=== PATIENT | male | born 1940 ===

== ENCOUNTER 2019-03-17 14:14 | Inpatient (IN) | payer MEDICARE ==
[2019-03-17] MEDS ORDERED: Ondansetron PF 4 MG/2 ML Vial IVP PRN (17:12)
[2019-03-17] MEDS ORDERED: Acetaminophen 650 MG Suppository PR PRN (17:12)
[2019-03-17] MEDS ORDERED: Dextrose 5% in Water 1,000 ML IV PRN (17:23)
[2019-03-17] MEDS ORDERED: Dextrose 50% Abboject 50 ML SYRINGE SLOW IVP PRN (17:23)
[2019-03-17] MEDS ORDERED: HumaLOG 300 UNITS/3 ML VIAL SC PRN ×2 (17:23)
[2019-03-17] MEDS ORDERED: Nystatin Powder 15 GM BOT TOP PRN (17:26)
[2019-03-17 17:45] LABS: #Eosinphils 0.1 thou/uL (0.0-0.7); #Lymphocytes 0.7 thou/uL (1.20-3.40); #Monocytes 0.3 thou/uL (0.11-0.59); #Neutrophils 4.9 thou/uL (1.40-6.50); %Basophils 0.5 % (0.0-1.0); %Monocytes 5.4 % (0.0-10.0); Hemoglobin 10.3 g/dL (14.0-18.0); Mean Corpuscular HGB CONC 33.3 g/dL (32.0-36.0); Mean Corpuscular Hemoglobin 31.5 pg (27.0-31.0); Mean Corpuscular Volume 94.7 fL (78.0-98.0); Mean Platelet Volume 8.9 fL (7.4-10.4); Platelet Count 213 thou/uL (130-400); RBC Distribution Width 12.3 % (11.5-14.5); Red Blood Cell (RBC) Count 3.27 mill/uL (4.70-6.10)
[2019-03-17 17:51] LABS: INR-International Normal Ratio 1.1; PTT 39.9 SEC (22.9-36.1); Prothrombin Time 14.4 SEC (12.0-14.7)
[2019-03-17 18:05] LABS: Lactic Acid 0.9 mmol/L (0.5-2.2)
[2019-03-17 18:09] LABS: ALT (SGPT) 7 U/L (8-55); AST (SGOT) 20 U/L (5-34); Albumin 3.3 g/dL (3.4-4.8); Alkaline Phosphatase 113 U/L (40-110); Anion Gap 18 mmol/L (10-20); BUN (Urea Nitrogen) 51 mg/dL (8.4-25.7); Bilirubin, Total 0.4 mg/dL (0.2-1.2); Calc. Creatinine Clearance 0 mL/min (70-130); Calcium 8.6 mg/dL (7.8-10.44); Carbon Dioxide 18 mmol/L (23-31); Chloride 102 mmol/L (98-107); Estimated GFR-MDRD 31; Globulin 3.4 g/dL (2.4-3.5); Glucose 117 mg/dL (83-110); Magnesium 2.2 mg/dL (1.6-2.6); Potassium 6.2 mmol/L (3.5-5.1); Protein, Total 6.7 g/dL (5.8-8.1); Sodium 132 mmol/L (136-145)
--- NOTE | 2019-03-17 18:25 | ULT ---
EXAM: Bilateral lower extremity venous ultrasound HISTORY: Bilateral lower extremity pain and edema COMPARISON: None TECHNIQUE: Multiplanar grayscale and color Doppler images were obtained in a bilateral lower extremit y venous ultrasound. Spectral analysis of the Doppler waveforms were performed. FINDINGS: There is limited visualization of the right common femoral vein, left posterior tibial vein , and right greater saphenous vein. The right profunda femoral vein, superficial femoral vein, and popliteal vein are normal in appearanc e without visible thrombus. The left common femoral vein, profunda femoral vein, superficial femoral vein, and popliteal vein are normal in appearance without visible thrombus. These vessels dem onstrate normal compression, flow, and augmentation. The visualized posterior tibial veins and greater saphenous veins are patent without evidence of thro mbus. IMPRESSION: No evidence of DVT.
--- NOTE | 2019-03-17 18:56 | HP ---
PRIMARY CARE PHYSICIAN: None. CHIEF COMPLAINT: Weakness and lower extremity swelling. HISTORY OF PRESENT ILLNESS: Mr. Burdick is a pleasant 78-year-old gentleman with a known history of bladder cancer, who more recently was diagnosed with large B- cell lymphoma after developing a retroperitoneal lymph node that was biopsied. The patient was recently sent to rehab by Dr. Lawson due to progressive generalized weakness and falls with plans to have him undergo repeat imaging once discharged from rehab and then further discussion regarding treatment. According to the patient and his daughter, he has had progressively worsening lower extremity swelling since he was sent home from rehab 2 weeks ago. The patient has not had any falls, but has continued to get progressively weak again. This morning, he was scheduled to follow up with Dr. Lawson and states he was too weak to stand. He noted significant swelling that extended into the groin with difficulty urinating. He presented to the emergency department in [place] and has been transferred here for further workup and management. He has had a Oliver placed. The patient was last seen by Dr. Lawson on 02/07/2019. Clinic note from that day indicates the lymph node was originally seen on routine imaging for surveillance given history of bladder cancer that was done in June 2018. The lymph node at that time measured 2.5 cm. He reportedly had already presented with general decline in January. He has had CT imaging done prior to January after having a fall that demonstrated the retroperitoneal node had enlarged further and there was apparently encasement of the abdominal aorta and bilateral ureters resulting in mild bilateral hydronephrosis. For that reason, the patient has undergone bilateral ureteral stent placement. The patient was then referred for rehab and consultation placed to Oncology. Per Dr. Lawson's assessment in January, it was felt that he was unlikely to tolerate treatment given his poor performance status and comorbidities. Further imaging was requested with a PET scan. He had also been referred to Cardiology and recommended an echo; however, the patient states that was not completed yet. At this present time, he denies having any pain, but does report having some discomfort in the lower extremities when his legs are palpated or moved. He denies having any chest pain, palpitations, or shortness of breath. Denies having any headaches or dizziness. No nausea or vomiting. Denies any abdominal pain or cramping. He does report some mild discomfort in the groin. States he has been using cornstarch for rash on his abdomen. Denies any associated pruritus. Has not had any recent fevers or chills. He has lost 100 pounds in the last year. States previously the swelling was worse in the right leg, but more recently has been worse in the left leg. CT imaging done on 01/28/2019, showed interval development of confluent retroperitoneal soft tissue density with encasement of abdominal aorta and bilateral ureters resulting in mild bilateral hydronephrosis. PAST MEDICAL HISTORY: 1. Diabetes mellitus. 2. Hypertension. 3. History of CA in 1989. 4. Hyperlipidemia. 5. Arthritis. 6. COPD. 7. Bladder cancer in 2003, in remission. 8. CKD. 9. Performance status of 3 to 4. 10. DLBCL of the retroperitoneal lymph nodes. PAST SURGICAL HISTORY: 1. Bladder surgery for bladder cancer. 2. Bilateral ureteral stent placements. 3. Back surgery. 4. Ankle surgery. 5. Shoulder surgery. SOCIAL HISTORY: The patient has been discharged from rehab and is now living at home. He lives with his . He is a former smoker and previously smoked 3 to 4 packs per day for 40 years. Denies any alcohol use or illicit drug use. ALLERGIES: BACTRIM. CURRENT MEDICATIONS: To be verified. Per ED, unknown. The patient does not have his medication list with him. PHYSICAL EXAMINATION: GENERAL: The patient appears well developed and in no acute distress. VITAL SIGNS: Temperature 97.8, pulse is 83, respirations 14, blood pressure 125 /69, O2 saturation 95% on room air. HEENT: Normocephalic and atraumatic. Pupils are equal, round, reactive to light. Sclerae without icterus. Oropharynx is clear. NECK: Supple without lymphadenopathy. LUNGS: Clear to auscultation bilaterally without wheezes, rales, or rhonchi. CARDIAC: Regular rate and rhythm. ABDOMEN: Soft, nontender. Notable for erythema along the lower abdomen with areas of skin desquamation between the skin folds. Dry powdery substance present which the patient states is cornstarch. No bleeding or draining. Erythema extending down to involve the suprapubic region and extending down to the penis with notable penile edema as well as groin edema and erythema. EXTREMITIES: Bilateral lower extremity +3 edema, extending from the feet to involve the entire bilateral legs. Edema seems to be slightly worse in the left side as compared to the right. The patient with right calf tenderness. NEUROLOGIC: Alert and oriented x3. No neurologic deficits. IMPRESSION AND PLAN: Mr. 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 The patient due for repeat imaging this week with a PET scan and has not yet started treatment given poor performance status. He was in rehab and appears to have continued to decline since discharge. The patient becoming increasingly weak with worsening lower extremity swelling. He is being admitted for management of the followin. Bilateral lower extremity edema and weakness. Bilateral Doppler ultrasound ordered to rule out any underlying deep vein thrombosis. Likely associated with malignant lymphadenopathy. Consultation has been placed to Susanna Wilson who Dr. Lerma discussed the case with. We will obtain a BNP and echo to rule out any underlying heart failure. We will also obtain baseline labs. Further imaging as per Oncology team. Keep the patient n.p.o. at midnight pending any possible procedures as per discussion with Dr. Lerma. We will place a consultation with Palliative Care to discuss goals of care and advance directives as well as for complex decision making. 2. Abdominal skin infection. The patient is afebrile. Again, we will obtain baseline laboratory studies including lactic acid. We will start antibiotics with ceftriaxone and p.o. doxycycline as per discussion with Dr. Lerma. We will also order nystatin powder. 3. Diabetes mellitus. Monitor blood glucose and initiate insulin sliding scale. 4. Hypertension. Monitor blood pressure. Currently, he is normotensive. Verify home medications. 5. Urinary retention. The patient with Oliver catheter in place. Urinalysis and urine culture requested. 6. Acute kidney injury/chronic kidney disease. ED physician has placed a consultation to Nephrology. Most recent labs done on 02/07/2019, showed a BUN of 44, creatinine of 2.18, GFR of 29. We will repeat renal function. Continue to monitor. Gentle hydration given degree of edema present. 7. GI prophylaxis. Famotidine 20 mg IV b.i.d. 8. DVT prophylaxis. Awaiting venous Doppler. 9. Code status full. Surrogate decision maker is Jaelyn Horta, who is his daughter. The patient's case was discussed with Dr. Lerma, who agrees with the plan of care as described above. ADDENDUM: Labs notable for hyperkalemia, K+ 6.2 Patient in ED, ED physician will obtain EKG. Apparently discussion had regarding dialysis, therefore ED resident will discuss with Dr. Cardenas. Patient will be going to Tele. Job ID: [id number] MTDD
[2019-03-17] MEDS ORDERED: Calcium Gluc 4.6 MEQ/10 ML (100 MG/ML) ONE (20:08)
[2019-03-17] MEDS ORDERED: Dextrose 50% Abboject 50 ML SYRINGE ONE (20:08)
[2019-03-17] MEDS ORDERED: Sodium Bicarb 50 MEQ/50 ML VIAL ONE (20:08)
[2019-03-17] MEDS ORDERED: Insulin Regular 300 UNITS/3 ML VIAL ONE (20:08)
[2019-03-17 20:29] LABS: ALT (SGPT) Less than 7 U/L (8-55); AST (SGOT) 13 U/L (5-34); Albumin 3.3 g/dL (3.4-4.8); Alkaline Phosphatase 113 U/L (40-110); Anion Gap 17 mmol/L (10-20); BUN (Urea Nitrogen) 51 mg/dL (8.4-25.7); Bilirubin, Total 0.4 mg/dL (0.2-1.2); Calc. Creatinine Clearance 0 mL/min (70-130); Calcium 8.7 mg/dL (7.8-10.44); Carbon Dioxide 21 mmol/L (23-31); Chloride 102 mmol/L (98-107); Estimated GFR-MDRD 31; Globulin 3.1 g/dL (2.4-3.5); Glucose 108 mg/dL (83-110); Potassium 5.8 mmol/L (3.5-5.1); Protein, Total 6.4 g/dL (5.8-8.1); Sodium 134 mmol/L (136-145)
[2019-03-17] MEDS ORDERED: Famotidine/PF 20 mg/2ml Vial SLOW IVP SCH (21:00)
[2019-03-17] MEDS ORDERED: Sodium Bicarbonate 50 MEQ in Sodium Chloride 0.45% 1,000 ML IV SCH (22:30)
[2019-03-17] MEDS ORDERED: Sodium Bicarbonate 150 MEQ in Dextrose 5% in Water 1,000 ML IV SCH (23:45)
[2019-03-18] MEDS: Doxycycline 100 MG CAP PO SCH ×3 (00:07→21:02)
[2019-03-18] MEDS: Ondansetron ODT 4 MG TAB PO PRN (00:07)
[2019-03-18] MEDS: Acetaminophen 325 MG TAB PO PRN (00:08)
[2019-03-18] MEDS: cefTRIAXone\\ROCEPHIN 1 GM in Sodium Chloride 0.9% 100 ML IVPB SCH ×2 (00:08→21:01)
--- NOTE | 2019-03-18 00:39 | CON ---
DATE OF CONSULTATION: REQUESTING PHYSICIAN: AMADO Godoy REASON FOR CONSULTATION: Acute kidney injury. IMPRESSION: 1. Acute kidney injury. This is possibly in the context of obstructive uropathy from extrinsic compression of the ureters, however, cannot completely rule out renal vein thrombosis. 2. Bilateral lower extremity edema. This is likely due to extrinsic compression of the inferior vena cava versus intrinsic compression of the inferior vena cava from inferior vena cava thrombosis. 3. History of B-cell lymphoma. 4. Hyperkalemia related to problem #1. 5. Metabolic acidosis. PLAN: 1. Discontinue normal saline to avoid precipitating re-expansion acidosis which will worsen the hyperkalemia. In place of this, we will start this patient on a bicarb based infusion, only 1 L. 2. Medical management of the hyperkalemia. 3. Renal ultrasound to evaluate the integrity of the kidneys. 4. We will defer to the primary team in terms of working this patient up for possible IVC thrombosis versus extrinsic compression of the IVC. 5. Hopefully, this patient will respond to the medical management of the hyperkalemia to avoid any emergent indication for renal replacement therapy. 6. Renally dose all medications and avoid potentially nephrotoxic agents. 7. If whenever this patient is to undergo chemotherapy, very close attention to be paid to potential tumor lysis syndrome. HISTORY OF PRESENT ILLNESS: History is that of a 78-year-old gentleman with a previous history of bladder carcinoma, recently diagnosed with B-cell lymphoma, who presented here as a transfer from the [facility] where the patient presented for weakness and worsening bilateral lower extremity edema. The patient on clinical evaluation was noted to be hyperkalemic and metabolically acidotic. As a result of these findings, decision has been taken to involve Renal in the management of this case. PAST MEDICAL HISTORY: Significant for diabetes mellitus, hypertension, coronary artery disease, arthritis, COPD, bladder cancer, CKD, stage 3. SOCIAL HISTORY: Remote tobacco use. No alcohol. No illicit drug use. ALLERGIES: TO BACTRIM. CURRENT MEDICATIONS: As documented on [facility]. REVIEW OF SYSTEMS: As documented in the body of the history. All other systems were reviewed and found not to be significantly related to present illness. PHYSICAL EXAMINATION: GENERAL: The patient was found to be ill looking, noted with the following vital signs. VITAL SIGNS: Afebrile, temperature 97.8, pulse 83, respiratory rate of 14, blood pressure 125/69, O2 saturation 95% on room air. HEENT: Unremarkable. CARDIOVASCULAR: First and second heart sounds were heard. RESPIRATORY: Clear to auscultation. DIGESTIVE: Revealed a benign abdomen with positive bowel sounds. EXTREMITIES: Showed 4+ bilateral lower extremity edema up to the scrotal area. SKIN: No new gross rash. LYMPHATICS: No peripheral lymphadenopathy. SUMMARY: A 78-year-old gentleman with recent diagnosis of B-cell lymphoma who presented here with worsening bilateral lower extremity edema, noted to be hyperkalemic and acute kidney injury. Job ID: [id number]
[2019-03-18 00:44] LABS: Bacteria/HPF 1+ HPF (None Seen); Bilirubin Negative (Negative); Blood, Urine 1+ (Negative); Clarity Turbid (Clear); Glucose, Urine (Dipstick) Normal (Negative); Leukocyte 500 Leu/uL (Negative); Nitrite Negative (Negative); Protein, Urine (Dipstick) 10 mg/dL (Neg-Trace); Squamous Epithelial 0-3 HPF (0-3); Urobilinogen Normal mg/dL (Less than 2); WBC/HPF 21-50 HPF (0-3)
[2019-03-18 00:45] LABS: Urine Culture Reflex Yes Yes
[2019-03-18 05:18] LABS: #Eosinphils 0.2 thou/uL (0.0-0.7); #Lymphocytes 0.9 thou/uL (1.20-3.40); #Monocytes 0.4 thou/uL (0.11-0.59); %Basophils 0.6 % (0.0-1.0); %Lymphocytes 16.8 % (21.0-51.0); %Monocytes 7.5 % (0.0-10.0); %Neutrophils 71.1 % (42.0-75.0); Hemoglobin 9.2 g/dL (14.0-18.0); Mean Corpuscular HGB CONC 32.6 g/dL (32.0-36.0); Mean Corpuscular Hemoglobin 30.9 pg (27.0-31.0); Mean Corpuscular Volume 94.8 fL (78.0-98.0); Mean Platelet Volume 8.9 fL (7.4-10.4); Platelet Count 219 thou/uL (130-400); RBC Distribution Width 12.5 % (11.5-14.5); Red Blood Cell (RBC) Count 2.98 mill/uL (4.70-6.10); White Blood Cell (WBC) Count 5.6 thou/uL (4.8-10.8)
[2019-03-18 05:51] LABS: Anion Gap 15 mmol/L (10-20); BUN (Urea Nitrogen) 48 mg/dL (8.4-25.7); Calc. Creatinine Clearance 48 mL/min (70-130); Calcium 8.6 mg/dL (7.8-10.44); Carbon Dioxide 24 mmol/L (23-31); Chloride 101 mmol/L (98-107); Estimated GFR-MDRD 35; Glucose 103 mg/dL (83-110); Potassium 5.1 mmol/L (3.5-5.1); Sodium 135 mmol/L (136-145)
--- NOTE | 2019-03-18 08:01 | ULT ---
BILATERAL RENAL ULTRASOUND: Date: 03/18/19 HISTORY: Acute renal insufficiency. FINDINGS: Real-time imaging of the right and left kidneys performed. The right kidney measures 10.9 cm and the left kidney measures 13.0 cm in size. A right ureteral stent is visualized. There are no signs of cys t or mass. There is some minimal left-sided hydronephrosis and some mild dilatation of the right lubna ecting system. Bladder is empty with a catheter in place. Incidental note is made of gallstones. IMPRESSION: 1. Right ureteral stent. 2. Some very mild dilatation of the right and left collecting systems. 3. Mildly distended gallbladder with gallstones. POS: OFF
--- NOTE | 2019-03-18 10:20 | PRG ---
DATE OF SERVICE: 03/18/2019 SUBJECTIVE: The patient is seen and examined, seems to be doing better. OBJECTIVE: VITAL SIGNS: Noted with the following vital signs, afebrile, temperature 97.5, pulse 76, respiratory rate of 16, O2 saturation 95%, and blood pressure 150/67. HEENT: Unremarkable. CARDIOVASCULAR: First and second heart sounds were heard. RESPIRATORY: Clear to auscultation. DIGESTIVE: Revealed a benign abdomen. EXTREMITIES: Showed bilateral lower extremity edema. IMPRESSION: 1. Acute on chronic kidney disease, likely in the context of obstructive uropathy, but seems to be improving, responded to gentle diuresis. 2. Metabolic acidosis, resolved, status post bicarb infusion. 3. Hyperkalemia, improved, status post correction of metabolic acidosis. PLAN: 1. We will likely discontinue the bicarb supplementation at this point. 2. Renally dose all medications. 3. Renal supportive measures. 4. Further management will be dependent on the clinical course. Job ID: [id number]
[2019-03-18] MEDS ORDERED: Polyethylene Glycol 3350 17 GM Packet PO PRN (12:17)
--- NOTE | 2019-03-18 12:36 | PDOC.HOSPP ---
- Subjective Encounter Date: 03/18/19 Encounter Time: 09:32 Subjective: 78 y/o male with bladder cancer s/p treatment and on remission, recent B cell lymphoma, obstructive uropathy s/p recent bilateral uretereal stent placement admitted with worsening lower limb swelling, weakness and difficulty urinating due to genital swelling. Found to have hyperkalemia, groin and lower abdominal skin excoriation and redness. S/p bolden placement. No new problem. No fever or chills - Objective Vital Signs & Weight: Vital Signs (12 hours) Temp Pulse Pulse Pulse Resp BP BP 03/18/19 11:05 97.5 F L 60 18 03/18/19 09:14 77 82 134/62 150/67 H 03/18/19 08:00 03/18/19 07:44 97.5 F L 76 16 03/18/19 04:00 98.4 F 80 17 BP Pulse Ox 03/18/19 11:05 130/60 82 L 03/18/19 09:14 03/18/19 08:00 95 03/18/19 07:44 149/65 H 95 03/18/19 04:00 118/58 L 94 L Weight Weight 228 lb 1.6 oz I&O: 03/17/19 03/18/19 03/19/19 06:59 06:59 06:59 Intake Total 917 Output Total 675 Balance 242 Result Diagrams: 03/18/19 04:17 03/18/19 04:16 Additional Labs: Accuchecks 03/18/19 03/18/19 03/17/19 10:43 05:22 22:38 POC Glucose 125 H 118 H 120 H 03/17/19 20:23 POC Glucose 99 Hospitalist ROS - Medication Medications: Active Medications Generic Name Dose Route Start Last Admin Trade Name Freq PRN Reason Stop Dose Admin Acetaminophen 650 mg 03/17/19 17:12 03/18/19 00:08 Tylenol PO 650 mg Q4H PRN Administration Headache/Fever/Mild Pain (1-3) Doxycycline Hyclate 100 mg 03/17/19 21:00 03/18/19 10:02 Vibramycin PO 100 mg BID ABDIRIZAK Administration Ceftriaxone Sodium 1 gm/ 100 mls @ 200 mls/hr 03/17/19 20:00 03/18/19 00:08 Sodium Chloride IVPB 100 mls Q24HR ABDIRIZAK Administration Nystatin 0 gm 03/17/19 17:26 03/18/19 00:11 Mycostatin Powder TOP 1 applic BID PRN Administration Topical Irritations Ondansetron HCl 4 mg 03/17/19 17:12 03/18/19 00:07 Zofran Odt PO 4 mg Q6H PRN Administration Nausea/Vomiting - Exam General Appearance: awake alert General - other findings: fatigued ENT: normocephalic atraumatic Neck: supple, no JVD Heart: RRR Respiratory - other findings: fair air entry bilaterally Gastrointestinal - other findings: obese. Lower abdominal and groin erythema and mild maceration noted Extremities: 2+ LE edema Neurological: cranial nerve grossly intact, no focal deficits Psychiatric: A&O x 3 Hosp A/P (1) Hyperkalemia Code(s): E87.5 - HYPERKALEMIA Status: Acute (2) GARIMA (acute kidney injury) Code(s): N17.9 - ACUTE KIDNEY FAILURE, UNSPECIFIED Status: Acute (3) CKD (chronic kidney disease) stage 3, GFR 30-59 ml/min Code(s): N18.3 - CHRONIC KIDNEY DISEASE, STAGE 3 (MODERATE) Status: Acute (4) Obstructive uropathy Code(s): N13.9 - OBSTRUCTIVE AND REFLUX UROPATHY, UNSPECIFIED Status: Acute (5) Bilateral hydronephrosis Code(s): N13.30 - UNSPECIFIED HYDRONEPHROSIS Status: Acute (6) B-cell lymphoma Code(s): C85.10 - UNSPECIFIED B-CELL LYMPHOMA, UNSPECIFIED SITE Status: Acute (7) Bilateral lower extremity edema Code(s): R60.0 - LOCALIZED EDEMA Status: Acute (8) Swelling of male genital structure Code(s): N50.89 - OTHER SPECIFIED DISORDERS OF THE MALE GENITAL ORGANS Status : Acute (9) Intertriginous candidiasis Code(s): B37.2 - CANDIDIASIS OF SKIN AND NAIL Status: Acute (10) Cellulitis Code(s): L03.90 - CELLULITIS, UNSPECIFIED Status: Acute (11) COPD (chronic obstructive pulmonary disease) Status: Acute (12) Diabetes mellitus Code(s): E11.9 - TYPE 2 DIABETES MELLITUS WITHOUT COMPLICATIONS Status: Acute (13) HTN (hypertension) Code(s): I10 - ESSENTIAL (PRIMARY) HYPERTENSION Status: Acute (14) Metabolic acidosis Code(s): E87.2 - ACIDOSIS Status: Acute (15) Physical deconditioning Code(s): R53.81 - OTHER MALAISE Status: Acute (16) Chronic anemia Code(s): D64.9 - ANEMIA, UNSPECIFIED Status: Acute (17) CAD (coronary artery disease) Code(s): I25.10 - ATHSCL HEART DISEASE OF [place] CORONARY ARTERY W/O ANG PCTRS Status: Acute - Plan Continue antibiotic, and bolden drainage. Nystatin pawder to intertrigineous areas DC sodoium bicarbonate as recommed by nephrology Hold diuretics. Elevated lower extremities. Restart analgesic, allopurinol, bronchodilators and aspirin PT/OT eval and treat Repeat CBC and renal function in the am. Get urine electrolytes and await Echo. Appreciate Nephrology and Oncology input.
[2019-03-18] MEDS: HYDROcodone/Acetaminophen 10/325 mg Tablet PO PRN (12:56)
[2019-03-18 15:10] LABS: Creatinine, Urine 56.71 mg/dL (63-166)
[2019-03-18] MEDS: Arformoterol 15 MCG/2 ML NEB NEB SCH (18:33)
[2019-03-18] MEDS: Allopurinol 300 MG TAB PO SCH (21:02)
[2019-03-18] MEDS: Montelukast Sodium 10 mg Tablet PO SCH (21:08)
--- NOTE | 2019-03-18 22:58 | CON ---
DATE OF CONSULTATION: REASON FOR CONSULT: Lymphoma. HISTORY OF PRESENT ILLNESS: Mr. Burdick is a 78-year-old gentleman with past medical history of congestive heart failure, bladder cancer, and COPD who underwent routine imaging in June 2018 and was found to have an enlarged retroperitoneal lymph node measuring 2.5 cm. It was recommended that it be biopsied, but he declined. Over the next several months, his performance status continued to decline. He was having multiple falls and lost 100 pounds of weight and landed in the hospital where he had a repeat CT scan that showed an enlarging retroperitoneal soft tissue density with encasement of the abdominal aorta and bilateral ureters resulting in mild bilateral hydronephrosis. Biopsy done in January, proved to be large B-cell lymphoma. He saw Dr. Jordan and had bilateral stents placed. He then went to rehab to increase his strength as he had extremely poor performance status and was unlikely to tolerate chemotherapy. He was discharged from this facility a week and a half ago. Unfortunately, he went home alone as his remained in rehab. He had bilateral lower extremity edema and scrotal swelling prior to discharge. It worsened over the past week and a half and he presented to the emergency room for evaluation. In [place], they did a CT scan of the abdomen and pelvis, which showed re-demonstration of the matted retroperitoneal soft-tissue. It encased the aorta and now had at least partial encasement of the IVC. It did appear larger than the one seen on CT a scan in January, now measures 5.7 x 9.1, whereas previously it measured 5.6 x 0.4. The patient was admitted for further treatment and transferred to this facility. His creatinine on arrival was 2. Dr. Cardenas was consulted with Nephrology as he had hyperkalemia with potassium of 5.8. We were asked to see the patient regarding his lymphoma. PAST MEDICAL HISTORY: 1. Newly diagnosed diffuse large B-cell lymphoma, present on imaging in June 2018. 2. History of bladder cancer, in remission. 3. Congestive heart failure with a history of MS. 4. Chronic renal insufficiency. 5. COPD. 6. Diabetes, hypertension, MS, high cholesterol. PAST SURGICAL HISTORY: Bladder surgery, back surgery, ankle surgery, multiple orthopedic surgeries, TURP, prostate cystoscopy, tonsillectomy, abdominal retroperitoneal biopsy. ALLERGIES: TO BACTRIM. HOME MEDICATIONS: 1. ProAir. 2. Allopurinol. 3. Brovana. 4. Aspirin. 5. Dexilant. 6. Voltaren gel. 7. Lasix. 8. Gabapentin. 9. Hydrochlorothiazide. 10. [place]. 11. Insulin. 12. Protonix. 13. MiraLAX. FAMILY HISTORY: Diabetes. SOCIAL HISTORY: He is , has 9 children. Lives with his spouse who unfortunately remains in rehab. He has a 40 pack-year history of smoking. No alcohol or illicit drug use. REVIEW OF SYSTEMS: CONSTITUTIONAL: Positive for fatigue, weight loss and loss of appetite. EYES: No blurred or double vision. ENT: No pain, hoarseness, sore throat, or dysphagia. CV: No chest pain, palpitations or syncope. RESPIRATORY: Positive for shortness of breath and cough. GI: Positive for abdominal pain, diarrhea, and constipation. : Positive for dysuria and frequency. SKIN: Positive for itching in his groin. NEUROLOGIC: Positive for weakness. No headache, numbness, tingling, or seizure activity. PSYCH: No anxiety or depression. PHYSICAL EXAMINATION: VITAL SIGNS: Temperature is 97.5, pulse is 74, respiratory rate 16, BP is 130/60. He is 98% on room air. GENERAL: This is a chronically ill-appearing male, in no acute distress. HEENT: Normocephalic, atraumatic. Pupils are equal and reactive to light. NECK: Supple. CV: Regular rate and rhythm. LUNGS: Clear. ABDOMEN: Obese, nontender. Bowel sounds are positive. EXTREMITIES: He has bilateral lower extremity edema 2+. SKIN: He has erythema in his groin with edema. HEMATOLOGICAL: There are no petechiae or purpura. NEUROLOGICAL: Nonfocal. PERTINENT LABS AND X-RAYS: Current WBCs are 5.6, hemoglobin 9.2, hematocrit 28.2, platelet count 219,000. He has 71% neutrophils and 16% lymphocytes. PT is 14.4, INR is 1.1, and PTT is 39.9. Sodium 135, potassium 5.1, chloride 101, CO2 is 24, BUN is 48, creatinine 1.89, calcium is 8.6, bilirubin 0.4. AST is 13, ALT is 7, and alkaline phosphatase is 113. Serum total protein 6.4, albumin 3.3, globulin 3.1. Urine showed 1+ bacteria. ASSESSMENT: 1. Diffuse large B-cell lymphoma. 2. Bilateral lower extremity edema possibly secondary to compression of IVC. 3. History of bladder cancer, in remission. 4. Poor performance status. DISCUSSION: The patient has seen Dr. Lawson for discussion of treatment for his diffuse large B-cell lymphoma. He has extremely poor performance status and it would be difficult to give him chemotherapy. However, the plan was to get a PET scan for full staging, which was scheduled for next week in the outpatient setting. Unfortunately, he is back in the hospital. It is unclear if he will be able to live at home as he was only home for a week before he bounced back into the hospital. I have consulted the palliative care team to discuss goals of care with the patient and family. We will discuss the patient further with Dr. Hicks who is legal services professional this weekend and will follow up with the patient. Thank you for the consult. Job ID: [id number]
[2019-03-19 04:18] LABS: Hemoglobin 9.4 g/dL (14.0-18.0); Mean Corpuscular HGB CONC 33.6 g/dL (32.0-36.0); Mean Corpuscular Hemoglobin 31.7 pg (27.0-31.0); Mean Corpuscular Volume 94.3 fL (78.0-98.0); Mean Platelet Volume 8.7 fL (7.4-10.4); Platelet Count 207 thou/uL (130-400); RBC Distribution Width 12.3 % (11.5-14.5); Red Blood Cell (RBC) Count 2.96 mill/uL (4.70-6.10); White Blood Cell (WBC) Count 5.7 thou/uL (4.8-10.8)
[2019-03-19 04:41] LABS: Anion Gap 12 mmol/L (10-20); BUN (Urea Nitrogen) 38 mg/dL (8.4-25.7); BUN/Creatinine Ratio 23.17; Calc. Creatinine Clearance 55 mL/min (70-130); Calcium 8.6 mg/dL (7.8-10.44); Carbon Dioxide 27 mmol/L (23-31); Chloride 103 mmol/L (98-107); Estimated GFR-MDRD 41; Glucose 110 mg/dL (83-110); Phosphorus 3.4 mg/dL (2.3-4.7); Sodium 137 mmol/L (136-145)
[2019-03-19] MEDS: Arformoterol 15 MCG/2 ML NEB NEB SCH ×2 (07:49→19:06)
[2019-03-19] MEDS: Aspirin 81 mg Enteric Coated Tablet PO SCH (08:45)
[2019-03-19] MEDS: Doxycycline 100 MG CAP PO SCH ×2 (08:45→20:21)
[2019-03-19] MEDS: Acetaminophen 325 MG TAB PO PRN (08:48)
--- NOTE | 2019-03-19 10:17 | PDOC.HOSPP ---
- Subjective Encounter Date: 03/19/19 Encounter Time: 08:15 Subjective: 78 y/o male with bladder cancer s/p treatment and on remission, recent B cell lymphoma, obstructive uropathy s/p recent bilateral uretereal stent placement admitted with worsening lower limb swelling, weakness and difficulty urinating due to genital swelling. Found to have hyperkalemia, groin and lower abdominal skin excoriation and redness. S/p bolden placement. Feeling better. redness and swelling are better. No new problem. No fever or chills - Objective Vital Signs & Weight: Vital Signs (12 hours) Temp Pulse Resp BP Pulse Ox 03/19/19 07:49 72 16 96 03/19/19 07:41 97.8 F 78 16 136/64 96 03/19/19 03:53 97.8 F 74 18 116/86 94 L 03/18/19 23:52 98.0 F 82 20 126/61 94 L Weight Weight 234 lb 6.4 oz I&O: 03/18/19 03/19/19 03/20/19 06:59 06:59 06:59 Intake Total 917 979 Output Total 675 1200 Balance 242 -221 Result Diagrams: 03/19/19 03:51 03/19/19 03:51 Additional Labs: Accuchecks 03/19/19 03/18/19 03/18/19 05:29 20:26 16:54 POC Glucose 111 H 161 H 124 H 03/18/19 10:43 POC Glucose 125 H Hospitalist ROS - Medication Medications: Active Medications Generic Name Dose Route Start Last Admin Trade Name Freq PRN Reason Stop Dose Admin Acetaminophen 650 mg 03/17/19 17:12 03/19/19 08:48 Tylenol PO 650 mg Q4H PRN Administration Headache/Fever/Mild Pain (1-3) Hydrocodone Bitart/Acetaminophen 1 tab 03/18/19 12:17 03/18/19 12:56 [place] 10/325 PO 1 tab Q4H PRN Administration Pain>4 Albuterol/Ipratropium 3 ml 03/18/19 15:00 03/19/19 07:49 Duoneb NEB 3 ml QID-RT ABDIRIZAK Administration Allopurinol 300 mg 03/18/19 21:00 03/18/19 21:02 Zyloprim PO 300 mg HS ABDIRIZAK Administration Arformoterol Tartrate 15 mcg 11/08/19 18:30 03/19/19 07:49 Brovana NEB 15 mcg BID-RT ABDIRIZAK Administration Aspirin 81 mg 03/19/19 09:00 03/19/19 08:45 Ecotrin PO 81 mg DAILY ABDIRIZAK Administration Doxycycline Hyclate 100 mg 03/17/19 21:00 03/19/19 08:45 Vibramycin PO 100 mg BID ABDIRIZAK Administration Ceftriaxone Sodium 1 gm/ 100 mls @ 200 mls/hr 03/17/19 20:00 03/18/19 21:01 Sodium Chloride IVPB 100 mls Q24HR ABDIRIZAK Administration Montelukast Sodium 10 mg 03/18/19 21:00 03/18/19 21:08 Singulair PO 10 mg HS ABDIRIZAK Administration Nystatin 0 gm 03/17/19 17:26 03/18/19 00:11 Mycostatin Powder TOP 1 applic BID PRN Administration Topical Irritations Ondansetron HCl 4 mg 03/17/19 17:12 03/18/19 00:07 Zofran Odt PO 4 mg Q6H PRN Administration Nausea/Vomiting Pantoprazole Sodium 40 mg 03/19/19 09:00 03/19/19 08:46 Protonix PO 40 mg DAILY ABDIRIZAK Administration - Exam General Appearance: awake alert Eye: anicteric sclera ENT: normocephalic atraumatic Neck: supple, no JVD Heart: RRR Respiratory: no wheezes, no rales, no ronchi, normal chest expansion Gastrointestinal: soft, non-tender, non-distended, normal bowel sounds Extremities: no cyanosis Extremities - other findings: edema is improved. now 1 +. Skin - other findings: groin erythema and excoriation is better Neurological: cranial nerve grossly intact, no focal deficits Musculoskeletal: generalized weakness Psychiatric: A&O x 3 Hosp A/P (1) Cellulitis Code(s): L03.90 - CELLULITIS, UNSPECIFIED Status: Acute (2) Intertriginous candidiasis Code(s): B37.2 - CANDIDIASIS OF SKIN AND NAIL Status: Acute (3) GARIMA (acute kidney injury) Code(s): N17.9 - ACUTE KIDNEY FAILURE, UNSPECIFIED Status: Acute (4) Hyperkalemia Code(s): E87.5 - HYPERKALEMIA Status: Acute (5) CKD (chronic kidney disease) stage 3, GFR 30-59 ml/min Code(s): N18.3 - CHRONIC KIDNEY DISEASE, STAGE 3 (MODERATE) Status: Acute (6) Obstructive uropathy Code(s): N13.9 - OBSTRUCTIVE AND REFLUX UROPATHY, UNSPECIFIED Status: Acute (7) Bilateral hydronephrosis Code(s): N13.30 - UNSPECIFIED HYDRONEPHROSIS Status: Acute (8) B-cell lymphoma Code(s): C85.10 - UNSPECIFIED B-CELL LYMPHOMA, UNSPECIFIED SITE Status: Acute (9) Bilateral lower extremity edema Code(s): R60.0 - LOCALIZED EDEMA Status: Acute (10) Swelling of male genital structure Code(s): N50.89 - OTHER SPECIFIED DISORDERS OF THE MALE GENITAL ORGANS Status : Acute (11) COPD (chronic obstructive pulmonary disease) Status: Acute (12) Diabetes mellitus Code(s): E11.9 - TYPE 2 DIABETES MELLITUS WITHOUT COMPLICATIONS Status: Acute (13) HTN (hypertension) Code(s): I10 - ESSENTIAL (PRIMARY) HYPERTENSION Status: Acute (14) Metabolic acidosis Code(s): E87.2 - ACIDOSIS Status: Acute (15) Physical deconditioning Code(s): R53.81 - OTHER MALAISE Status: Acute (16) Chronic anemia Code(s): D64.9 - ANEMIA, UNSPECIFIED Status: Acute (17) CAD (coronary artery disease) Code(s): I25.10 - ATHSCL HEART DISEASE OF [place] CORONARY ARTERY W/O ANG PCTRS Status: Acute - Plan Continue antibiotic, and bolden drainage. Avoid diuretic and nephrotoxic agents. Creatinine is trending down Continue Nystatin powder to intertrigineous areas Elevated lower extremities. Continue other treatments PT/OT eval and treat Repeat CBC and renal function in the am
[2019-03-19] MEDS: HYDROcodone/Acetaminophen 10/325 mg Tablet PO PRN (16:52)
[2019-03-19] MEDS: cefTRIAXone\\ROCEPHIN 1 GM in Sodium Chloride 0.9% 100 ML IVPB SCH (19:42)
[2019-03-19] MEDS: Montelukast Sodium 10 mg Tablet PO SCH (19:42)
[2019-03-19] MEDS: Allopurinol 300 MG TAB PO SCH (19:42)
[2019-03-20 05:05] LABS: Albumin 3.3 g/dL (3.4-4.8); Anion Gap 12 mmol/L (10-20); BUN (Urea Nitrogen) 26 mg/dL (8.4-25.7); BUN/Creatinine Ratio 19.85; Calc. Creatinine Clearance 71 mL/min (70-130); Calcium 8.8 mg/dL (7.8-10.44); Carbon Dioxide 28 mmol/L (23-31); Chloride 103 mmol/L (98-107); Estimated GFR-MDRD 53; Glucose 114 mg/dL (83-110); Phosphorus 3.3 mg/dL (2.3-4.7); Potassium 4.8 mmol/L (3.5-5.1); Sodium 138 mmol/L (136-145)
[2019-03-20] MEDS: Arformoterol 15 MCG/2 ML NEB NEB SCH ×2 (07:11→18:59)
[2019-03-20] MEDS: Aspirin 81 mg Enteric Coated Tablet PO SCH (08:21)
[2019-03-20] MEDS: Carvedilol 3.125 MG TAB PO SCH ×2 (08:21→16:59)
[2019-03-20] MEDS: Doxycycline 100 MG CAP PO SCH ×2 (08:21→20:53)
[2019-03-20] MEDS: Cefdinir 300 MG CAP PO SCH ×2 (08:21→20:52)
--- NOTE | 2019-03-20 10:30 | PDOC.HOSPP ---
- Subjective Encounter Date: 03/20/19 Encounter Time: 08:29 Subjective: 78 y/o male with bladder cancer s/p treatment and on remission, recent B cell lymphoma, obstructive uropathy s/p recent bilateral uretereal stent placement admitted with worsening lower limb swelling, weakness and difficulty urinating due to genital swelling. Found to have hyperkalemia, groin and lower abdominal skin excoriation and redness. S/p bolden placement. Feeling with improvement of lower extremity edema. No fever or chills - Objective Vital Signs & Weight: Vital Signs (12 hours) Temp Pulse Resp BP Pulse Ox 03/20/19 08:00 97.0 F L 92 18 162/79 H 96 03/20/19 07:11 79 16 97 03/20/19 03:51 97.9 F 80 16 173/79 H 99 03/20/19 03:09 97.9 F 80 16 173/79 H 95 03/20/19 00:00 97.1 F L 78 16 145/68 H 96 03/19/19 23:25 97.1 F L 78 16 145/68 H 96 Weight Weight 233 lb I&O: 03/19/19 03/20/19 03/21/19 06:59 06:59 06:59 Intake Total 979 200 Output Total 1200 175 Balance -221 25 Result Diagrams: 03/19/19 03:51 03/20/19 04:27 Additional Labs: Accuchecks 03/20/19 03/19/19 03/19/19 05:28 16:48 10:45 POC Glucose 126 H 120 H 145 H Hospitalist ROS - Medication Medications: Active Medications Generic Name Dose Route Start Last Admin Trade Name Freq PRN Reason Stop Dose Admin Acetaminophen 650 mg 03/17/19 17:12 03/19/19 08:48 Tylenol PO 650 mg Q4H PRN Administration Headache/Fever/Mild Pain (1-3) Hydrocodone Bitart/Acetaminophen 1 tab 03/18/19 12:17 03/19/19 16:52 [place] 10/325 PO 1 tab Q4H PRN Administration Pain>4 Albuterol/Ipratropium 3 ml 03/17/19 17:58 03/19/19 13:54 Duoneb NEB 3 ml [id number] PRN Administration SOB &/or Wheezing Albuterol/Ipratropium 3 ml 03/18/19 15:00 03/20/19 10:09 Duoneb NEB Not Given QID-RT ABDIRIZAK Allopurinol 300 mg 03/18/19 21:00 03/19/19 19:42 Zyloprim PO 300 mg HS ABDIRIZAK Administration Arformoterol Tartrate 15 mcg 03/18/19 18:30 03/20/19 07:11 Brovana NEB 15 mcg BID-RT ABDIRIZAK Administration Aspirin 81 mg 03/19/19 09:00 03/20/19 08:21 Ecotrin PO 81 mg DAILY ABDIRIZAK Administration Carvedilol 3.125 mg 03/20/19 08:00 03/20/19 08:21 Coreg PO 3.125 mg BID-WM ABDIRIZAK Administration Cefdinir 300 mg 03/20/19 09:00 03/20/19 08:21 Omnicef PO 300 mg BID ABDIRIZAK Administration Doxycycline Hyclate 100 mg 03/17/19 21:00 03/20/19 08:21 Vibramycin PO 100 mg BID ABDIRIZAK Administration Montelukast Sodium 10 mg 03/18/19 21:00 03/19/19 19:42 Singulair PO 10 mg HS ABDIRIZAK Administration Nystatin 0 gm 03/17/19 17:26 03/18/19 00:11 Mycostatin Powder TOP 1 applic BID PRN Administration Topical Irritations Ondansetron HCl 4 mg 03/17/19 17:12 03/18/19 00:07 Zofran Odt PO 4 mg Q6H PRN Administration Nausea/Vomiting Pantoprazole Sodium 40 mg 03/19/19 09:00 03/20/19 08:21 Protonix PO 40 mg DAILY ABDIRIZAK Administration Sodium Chloride 10 ml 03/17/19 17:12 03/19/19 19:43 Flush - Normal Saline IVF 10 ml Q12HR PRN Administration Saline Flush - Exam General Appearance: awake alert Eye: anicteric sclera ENT: normocephalic atraumatic Neck: supple, symmetric, no JVD Heart: RRR Respiratory: no wheezes, no ronchi, normal chest expansion Gastrointestinal: soft, non-tender, non-distended, normal bowel sounds Gastrointestinal - other findings: scrotal and penile edema with bolden inplace noted Extremities: 1+ LE edema Skin - other findings: Resolving lower abdominal and groin maceration/erythema Neurological: cranial nerve grossly intact, no focal deficits Musculoskeletal: generalized weakness Psychiatric: A&O x 3 Hosp A/P (1) Cellulitis Code(s): L03.90 - CELLULITIS, UNSPECIFIED Status: Acute (2) Intertriginous candidiasis Code(s): B37.2 - CANDIDIASIS OF SKIN AND NAIL Status: Acute (3) GARIMA (acute kidney injury) Code(s): N17.9 - ACUTE KIDNEY FAILURE, UNSPECIFIED Status: Acute (4) Hyperkalemia Code(s): E87.5 - HYPERKALEMIA Status: Acute (5) CKD (chronic kidney disease) stage 3, GFR 30-59 ml/min Code(s): N18.3 - CHRONIC KIDNEY DISEASE, STAGE 3 (MODERATE) Status: Acute (6) Obstructive uropathy Code(s): N13.9 - OBSTRUCTIVE AND REFLUX UROPATHY, UNSPECIFIED Status: Acute (7) Bilateral hydronephrosis Code(s): N13.30 - UNSPECIFIED HYDRONEPHROSIS Status: Acute (8) B-cell lymphoma Code(s): C85.10 - UNSPECIFIED B-CELL LYMPHOMA, UNSPECIFIED SITE Status: Acute (9) Bilateral lower extremity edema Code(s): R60.0 - LOCALIZED EDEMA Status: Acute (10) Swelling of male genital structure Code(s): N50.89 - OTHER SPECIFIED DISORDERS OF THE MALE GENITAL ORGANS Status : Acute (11) COPD (chronic obstructive pulmonary disease) Status: Acute (12) Diabetes mellitus Code(s): E11.9 - TYPE 2 DIABETES MELLITUS WITHOUT COMPLICATIONS Status: Acute (13) HTN (hypertension) Code(s): I10 - ESSENTIAL (PRIMARY) HYPERTENSION Status: Acute (14) Metabolic acidosis Code(s): E87.2 - ACIDOSIS Status: Acute (15) Physical deconditioning Code(s): R53.81 - OTHER MALAISE Status: Acute (16) Chronic anemia Code(s): D64.9 - ANEMIA, UNSPECIFIED Status: Acute (17) CAD (coronary artery disease) Code(s): I25.10 - ATHSCL HEART DISEASE OF [place] CORONARY ARTERY W/O ANG PCTRS Status: Acute - Plan Continue antibiotic, and bolden drainage. Scrotal support Avoid diuretic and nephrotoxic agents. Creatinine is trending down Continue Nystatin powder to intertrigineous areas Elevated lower extremities. Continue other treatments PT/OT eval and treat Repeat CBC and renal function in the am Patient will benefit from acute rehab. Case mgt consult requested.
[2019-03-20] MEDS: Acetaminophen 325 MG TAB PO PRN (19:24)
[2019-03-20] MEDS: Montelukast Sodium 10 mg Tablet PO SCH (20:53)
[2019-03-20] MEDS: Allopurinol 300 MG TAB PO SCH (21:00)
--- NOTE | 2019-03-20 21:37 | PRG ---
DATE OF SERVICE: 03/20/2019 SUBJECTIVE: The patient is seen and examined, seems to be doing much better, noted with the following vital signs. OBJECTIVE: VITAL SIGNS: Afebrile, temperature 97, pulse 92, respiratory rate of 18, blood pressure 162/79, O2 saturation of 96%. HEENT: Unremarkable. CARDIOVASCULAR SYSTEM: First and second heart sounds were heard. RESPIRATORY SYSTEM: Clear to auscultation. DIGESTIVE SYSTEM: Revealed a benign abdomen. Positive bowel sounds. EXTREMITIES: No peripheral edema. SKIN: No new gross rash. LYMPHATICS: No peripheral lymphadenopathy. IMPRESSION: Acute on chronic kidney disease in the context of obstructive uropathy, seems to be much improved. PLAN: 1. Continue current renal supportive measures. 2. Further management to be dependent on the clinical course. Job ID: [id number]
[2019-03-21 05:02] LABS: Hemoglobin 10.4 g/dL (14.0-18.0); Mean Corpuscular HGB CONC 32.4 g/dL (32.0-36.0); Mean Corpuscular Hemoglobin 30.4 pg (27.0-31.0); Mean Corpuscular Volume 93.9 fL (78.0-98.0); Mean Platelet Volume 9.1 fL (7.4-10.4); Platelet Count 219 thou/uL (130-400); RBC Distribution Width 12.2 % (11.5-14.5); Red Blood Cell (RBC) Count 3.42 mill/uL (4.70-6.10); White Blood Cell (WBC) Count 6.4 thou/uL (4.8-10.8)
[2019-03-21 05:23] LABS: Albumin 3.3 g/dL (3.4-4.8); Anion Gap 12 mmol/L (10-20); BUN (Urea Nitrogen) 20 mg/dL (8.4-25.7); BUN/Creatinine Ratio 17.09; Calc. Creatinine Clearance 79 mL/min (70-130); Calcium 8.7 mg/dL (7.8-10.44); Carbon Dioxide 23 mmol/L (23-31); Chloride 104 mmol/L (98-107); Estimated GFR-MDRD 60; Glucose 114 mg/dL (83-110); Phosphorus 2.7 mg/dL (2.3-4.7); Potassium 4.3 mmol/L (3.5-5.1); Sodium 135 mmol/L (136-145)
[2019-03-21] MEDS: Arformoterol 15 MCG/2 ML NEB NEB SCH ×2 (07:42→18:58)
[2019-03-21] MEDS ORDERED: Carvedilol 3.125 MG TAB PO SCH (08:00)
[2019-03-21] MEDS: Ondansetron ODT 4 MG TAB PO PRN ×2 (09:06→15:21)
[2019-03-21] MEDS: Doxycycline 100 MG CAP PO SCH ×2 (09:08→19:55)
[2019-03-21] MEDS: Cefdinir 300 MG CAP PO SCH ×2 (09:09→19:54)
[2019-03-21] MEDS: Carvedilol 6.25 MG TAB PO SCH ×2 (09:09→16:25)
[2019-03-21] MEDS: Aspirin 81 mg Enteric Coated Tablet PO SCH (09:09)
[2019-03-21] MEDS: Carvedilol 3.125 MG TAB PO SCH (10:38)
--- NOTE | 2019-03-21 11:17 | PDOC.HOSPP ---
- Subjective Encounter Date: 03/21/19 Encounter Time: 11:14 Subjective: 78 y/o male with bladder cancer s/p treatment and on remission, recent B cell lymphoma, obstructive uropathy s/p recent bilateral uretereal stent placement admitted with worsening lower limb swelling, weakness and difficulty urinating due to genital swelling. Found to have hyperkalemia, groin and lower abdominal skin excoriation and redness. S/p bolden placement. Feeling better with improvement of lower extremity edema. No fever or chills. - Objective Vital Signs & Weight: Vital Signs (12 hours) Temp Pulse Resp BP Pulse Ox 03/21/19 10:36 87 15 99 03/21/19 07:52 98.3 F 80 16 175/79 H 98 03/21/19 07:42 85 18 98 03/21/19 04:00 98.1 F 81 16 153/76 H 98 03/21/19 03:00 98.1 F 81 16 153/76 H 98 03/21/19 00:00 98.1 F 81 16 153/76 H 98 03/20/19 23:16 98.5 F 83 16 169/82 H 94 L Weight Weight 233 lb I&O: 03/20/19 03/21/19 03/22/19 06:59 06:59 06:59 Intake Total 200 200 Output Total 175 2200 Balance -1999 Result Diagrams: 03/21/19 04:19 03/21/19 04:19 Additional Labs: Accuchecks 03/21/19 03/21/19 03/20/19 10:34 05:04 20:10 POC Glucose 172 H 118 H 125 H 03/20/19 03/20/19 16:28 10:33 POC Glucose 126 H 118 H Hospitalist ROS - Medication Medications: Active Medications Generic Name Dose Route Start Last Admin Trade Name Freq PRN Reason Stop Dose Admin Acetaminophen 650 mg 03/17/19 17:12 03/20/19 19:24 Tylenol PO 650 mg Q4H PRN Administration Headache/Fever/Mild Pain (1-3) Hydrocodone Bitart/Acetaminophen 1 tab 03/18/19 12:17 03/19/19 16:52 [place] 10/325 PO 1 tab Q4H PRN Administration Pain>4 Albuterol/Ipratropium 3 ml 03/17/19 17:58 03/19/19 13:54 Duoneb NEB 3 ml [id number] PRN Administration SOB &/or Wheezing Albuterol/Ipratropium 3 ml 03/18/19 15:00 03/21/19 10:36 Duoneb NEB 3 ml QID-RT ABDIRIZAK Administration Allopurinol 300 mg 03/18/19 21:00 03/20/19 21:00 Zyloprim PO 300 mg HS ABDIRIZAK Administration Arformoterol Tartrate 15 mcg 03/18/19 18:30 03/21/19 07:42 Brovana NEB 15 mcg BID-RT ABDIRIZAK Administration Aspirin 81 mg 03/19/19 09:00 03/21/19 09:09 Ecotrin PO 81 mg DAILY ABDIRIZAK Administration Carvedilol 12.5 mg 03/21/19 08:00 03/21/19 09:09 Coreg PO 12.5 mg BID-WM ABDIRIZAK Administration Cefdinir 300 mg 03/20/19 09:00 03/21/19 09:09 Omnicef PO 300 mg BID ABDIRIZAK Administration Doxycycline Hyclate 100 mg 03/17/19 21:00 03/21/19 09:08 Vibramycin PO 100 mg BID ABDIRIZAK Administration Montelukast Sodium 10 mg 03/18/19 21:00 03/20/19 20:53 Singulair PO 10 mg HS ABDIRIZAK Administration Nystatin 0 gm 03/17/19 17:26 03/18/19 00:11 Mycostatin Powder TOP 1 applic BID PRN Administration Topical Irritations Ondansetron HCl 4 mg 03/17/19 17:12 03/21/19 09:06 Zofran Odt PO 4 mg Q6H PRN Administration Nausea/Vomiting Pantoprazole Sodium 40 mg 03/19/19 09:00 03/21/19 09:09 Protonix PO 40 mg DAILY ABDIRIZAK Administration Sodium Chloride 10 ml 03/17/19 17:12 03/19/19 19:43 Flush - Normal Saline IVF 10 ml Q12HR PRN Administration Saline Flush - Exam General Appearance: awake alert Eye: anicteric sclera ENT: normocephalic atraumatic Neck: symmetric, no JVD Heart: RRR Respiratory: no wheezes, no rales, no ronchi, normal chest expansion Gastrointestinal: soft, non-tender, non-distended, normal bowel sounds Gastrointestinal - other findings: mild lower abdominal and groin erythema with minimal excoriation/maceration Extremities - other findings: mild bilateral leg edema. no erythema Neurological: cranial nerve grossly intact, no focal deficits Musculoskeletal: generalized weakness Psychiatric: A&O x 3 Psychiatric - other findings: some memory lapses noted Hosp A/P (1) Cellulitis Code(s): L03.90 - CELLULITIS, UNSPECIFIED Status: Acute (2) Intertriginous candidiasis Code(s): B37.2 - CANDIDIASIS OF SKIN AND NAIL Status: Acute (3) GARIMA (acute kidney injury) Code(s): N17.9 - ACUTE KIDNEY FAILURE, UNSPECIFIED Status: Acute (4) Hyperkalemia Code(s): E87.5 - HYPERKALEMIA Status: Acute (5) CKD (chronic kidney disease) stage 3, GFR 30-59 ml/min Code(s): N18.3 - CHRONIC KIDNEY DISEASE, STAGE 3 (MODERATE) Status: Acute (6) Obstructive uropathy Code(s): N13.9 - OBSTRUCTIVE AND REFLUX UROPATHY, UNSPECIFIED Status: Acute (7) Bilateral hydronephrosis Code(s): N13.30 - UNSPECIFIED HYDRONEPHROSIS Status: Acute (8) B-cell lymphoma Code(s): C85.10 - UNSPECIFIED B-CELL LYMPHOMA, UNSPECIFIED SITE Status: Acute (9) Bilateral lower extremity edema Code(s): R60.0 - LOCALIZED EDEMA Status: Acute (10) Swelling of male genital structure Code(s): N50.89 - OTHER SPECIFIED DISORDERS OF THE MALE GENITAL ORGANS Status : Acute (11) COPD (chronic obstructive pulmonary disease) Status: Acute (12) Diabetes mellitus Code(s): E11.9 - TYPE 2 DIABETES MELLITUS WITHOUT COMPLICATIONS Status: Acute (13) HTN (hypertension) Code(s): I10 - ESSENTIAL (PRIMARY) HYPERTENSION Status: Acute (14) Metabolic acidosis Code(s): E87.2 - ACIDOSIS Status: Acute (15) Physical deconditioning Code(s): R53.81 - OTHER MALAISE Status: Acute (16) Chronic anemia Code(s): D64.9 - ANEMIA, UNSPECIFIED Status: Acute (17) CAD (coronary artery disease) Code(s): I25.10 - ATHSCL HEART DISEASE OF [place] CORONARY ARTERY W/O ANG PCTRS Status: Acute - Plan Add amlodipine to coreg to get better BP control. Continue antibiotic, and bolden drainage. Avoid diuretic and nephrotoxic agents. Continue Nystatin powder to intertrigineous areas Elevated lower extremities. Continue other treatments PT/OT eval and treat Consult palliative care. patient is not strong enough to go home and wants to go home so he can get PET scan in 3 days Can be discharged from medical point of view once disposition is decided and concluded
--- NOTE | 2019-03-21 11:28 | PQF ---
DAREN POOLE LAINE LOPEZ [id number] [facility] [id number] CLINICAL DOCUMENTATION IMPROVEMENT CLARIFICATION FORM: ICD-10 Updated PLEASE DO AN ADDENDUM TO THE PROGRESS NOTE WITH ANY DOCUMENTATION UPDATES OR ADDITIONS AND CARRY THROUGH TO DC SUMMARY. THANK YOU. DATE: 03/21/19 ATTN: Dr. Lopez Please exercise your independent, professional judgment in responding to the clarification form. Clinical indicators are provided on the bottom of this form for your review Please check appropriate box(s): HEART FAILURE: A. ACUITY [ x ] Chronic B. TYPE [ x ] Diastolic / HFpEF [ ] Hypertensive Heart and Kidney disease [ ] Hypertensive Heart Disease [ ] Hypertensive Kidney Disease [ ] Other diagnosis [ ] Unable to determine In addition, please specify: Present on Admission (POA): [ x ] Yes [ ] No [ ] Unable to determine For continuity of documentation, please document condition throughout progress notes and discharge summary. Thank You. CLINICAL INDICATORS - SIGNS / SYMPTOMS / LABS / RESULTS AND LOCATION IN EMR 03/18 Echo: EF 50-55%; grade 1/3 diastolic dysfunction 03/18 Nurgent: "bilateral lower extremity edema 2+" Elevated BNP--> Lab: 03/17 BNP 152.9 03/17 bun 51, creat 2.06, GFR 31--03/18 bun 48, creat 1.89, GFR 35 per lab RISKS FACTORS / RESULTS AND LOCATION IN EMR 03/18 Steve: "congestive heart failure with history of VT" 03/20 Obi: "HTN, CKD 3" TREATMENTS / RESULTS AND LOCATION IN EMR Administration of BB--> 03/20 Coreg 3.125 mg po BID; 03/21 Coreg increased to 12.5mg po BID per orders Cardiac monitoring / telemetry 03/18 per orders ECHO 03/18 per orders (This form is maintained as a part of the permanent medical record) 2014 [email or web address], [employer] All Rights Reserved Velia Vanessa RN, BSN, CCDS [email or web address]
[2019-03-21] MEDS ORDERED: Amlodipine 5 MG TAB PO SCH (11:30)
[2019-03-21] MEDS ORDERED: Gaviscon Tablet PO PRN (14:05)
--- NOTE | 2019-03-21 14:05 | PRG ---
DATE OF SERVICE: 03/21/2019 SUBJECTIVE: The patient is seen and examined, noted with the following vital signs. OBJECTIVE: VITAL SIGNS: Afebrile, temperature 97.8, pulse 88, respiratory rate of 16, O2 saturation of 98%, and blood pressure 131/75. HEENT: Unremarkable. CARDIOVASCULAR: First and second heart sounds were heard. RESPIRATORY: Clear to auscultation. DIGESTIVE: Revealed a benign abdomen with positive bowel sounds. EXTREMITIES: No peripheral edema. SKIN: No new gross rash. LYMPHATICS: No peripheral lymphadenopathy. LABORATORY INVESTIGATION: Showed a hemoglobin of 10.4. Chemistry showed a creatinine down to 1.17. IMPRESSION: Acute on chronic kidney disease in the context of obstructive uropathy, shown significant improvement. PLAN: 1. We will continue with current renal supportive measures. 2. Further management to be dependent on the clinical course. Job ID: [id number]
--- NOTE | 2019-03-21 14:10 | PDOC.MOPN ---
Interval History: walked in hallway today, BLE edema improved. - Vital Signs Vital Signs: Vital Signs (12 hours) Temp Pulse Resp BP Pulse Ox 03/21/19 13:44 91 14 87 L 03/21/19 11:20 97.8 F 88 16 131/75 98 03/21/19 10:36 87 15 99 03/21/19 07:52 98.3 F 80 16 175/79 H 98 03/21/19 07:42 85 18 98 03/21/19 04:00 98.1 F 81 16 153/76 H 98 03/21/19 03:00 98.1 F 81 16 153/76 H 98 Weight Weight 233 lb - Physical Exam General: Alert, Oriented x3, No acute distress HEENT: Atraumatic, PERRLA, EOMI, Mucous membr. moist/pink Lungs: Clear to auscultation Cardiovascular: Regular rate Abdomen: Normal bowel sounds Extremities: Other Skin: No significant lesion (cellulitis in groin) Neurological: Normal speech Psych/Mental Status: Mental status NL - Labs Result Diagrams: 03/21/19 04:19 03/21/19 04:19 Lab results: Laboratory Results - last 24 hr 03/21/19 10:34: POC Glucose 172 H 03/21/19 05:04: POC Glucose 118 H 03/21/19 04:19: WBC 6.4, RBC 3.42 L, Hgb 10.4 L, Hct 32.1 L, MCV 93.9, MCH 30.4 , MCHC 32.4, RDW 12.2, Plt Count 219, MPV 9.1 03/21/19 04:19: Sodium 135 L, Potassium 4.3, Chloride 104, Carbon Dioxide 23, Anion Gap 12, BUN 20, Creatinine 1.17, Estimated GFR (MDRD) 60, BUN/Creatinine Ratio 17.09, Glucose 114 H, Calcium 8.7, Phosphorus 2.7, Albumin 3.3 L 03/20/19 20:10: POC Glucose 125 H 03/20/19 16:28: POC Glucose 126 H Status: lab reviewed by me A/P - Problem (1) GARIMA (acute kidney injury) Current Visit: Yes Code(s): N17.9 - ACUTE KIDNEY FAILURE, UNSPECIFIED Status : Acute (2) B-cell lymphoma Current Visit: Yes Code(s): C85.10 - UNSPECIFIED B-CELL LYMPHOMA, UNSPECIFIED SITE Status: Acute (3) Bilateral hydronephrosis Current Visit: Yes Code(s): N13.30 - UNSPECIFIED HYDRONEPHROSIS Status: Acute (4) Bilateral lower extremity edema Current Visit: Yes Code(s): R60.0 - LOCALIZED EDEMA Status: Acute (5) Cellulitis Current Visit: Yes Code(s): L03.90 - CELLULITIS, UNSPECIFIED Status: Acute (6) Physical deconditioning Current Visit: Yes Code(s): R53.81 - OTHER MALAISE Status: Acute - Plan Plan: Continue supportive care. Consider inpatient chemo, will discuss with Dr. Lawson.
[2019-03-21] MEDS: Allopurinol 300 MG TAB PO SCH (19:54)
[2019-03-21] MEDS: Montelukast Sodium 10 mg Tablet PO SCH (19:55)
[2019-03-22 05:21] VITALS: BMI 35.4
[2019-03-22] MEDS: Arformoterol 15 MCG/2 ML NEB NEB SCH ×2 (06:50→19:52)
[2019-03-22] MEDS ORDERED: Amlodipine 5 MG TAB PO SCH (09:00)
[2019-03-22] MEDS: Carvedilol 6.25 MG TAB PO SCH ×2 (09:31→16:49)
[2019-03-22] MEDS: Aspirin 81 mg Enteric Coated Tablet PO SCH (09:32)
[2019-03-22] MEDS: Cefdinir 300 MG CAP PO SCH ×2 (09:33→20:49)
[2019-03-22] MEDS: Doxycycline 100 MG CAP PO SCH ×2 (09:34→20:49)
--- NOTE | 2019-03-22 14:23 | PDOC.HOSPP ---
- Subjective Encounter Date: 03/22/19 Encounter Time: 09:03 Subjective: 78 y/o male with bladder cancer s/p treatment and on remission, recent B cell lymphoma, obstructive uropathy s/p recent bilateral uretereal stent placement admitted with worsening lower limb swelling, weakness and difficulty urinating due to genital swelling. Found to have hyperkalemia, groin and lower abdominal skin excoriation and redness. S/p bolden placement. Feeling better with improvement of lower extremity edema. No fever or chills. Inpatient chemo is contemplated by oncology. - Objective Vital Signs & Weight: Vital Signs (12 hours) Temp Pulse Resp BP Pulse Ox 03/22/19 12:00 98.0 F 81 20 158/74 H 94 L 03/22/19 10:19 83 14 97 03/22/19 09:32 86 03/22/19 08:05 97 03/22/19 08:03 98.3 F 86 18 143/70 H 95 03/22/19 06:50 87 16 99 03/22/19 03:59 97.5 F L 83 18 165/77 H 97 Weight Weight 226 lb I&O: 03/21/19 03/22/19 03/23/19 06:59 06:59 06:59 Intake Total 200 100 Output Total 2200 1300 Balance -2000 -1200 Result Diagrams: 03/21/19 04:19 03/21/19 04:19 Additional Labs: Accuchecks 03/22/19 03/22/19 03/21/19 10:20 05:40 20:21 POC Glucose 113 H 113 H 139 H 03/21/19 15:09 POC Glucose 150 H Hospitalist ROS - Medication Medications: Active Medications Generic Name Dose Route Start Last Admin Trade Name Freq PRN Reason Stop Dose Admin Acetaminophen 650 mg 03/17/19 17:12 03/20/19 19:24 Tylenol PO 650 mg Q4H PRN Administration Headache/Fever/Mild Pain (1-3) Hydrocodone Bitart/Acetaminophen 1 tab 03/18/19 12:17 03/19/19 16:52 [place] 10/325 PO 1 tab Q4H PRN Administration Pain>4 Albuterol/Ipratropium 3 ml 03/17/19 17:58 03/19/19 13:54 Duoneb NEB 3 ml [id number] PRN Administration SOB &/or Wheezing Albuterol/Ipratropium 3 ml 03/18/19 15:00 03/22/19 10:19 Duoneb NEB 3 ml QID-RT ABDIRIZAK Administration Allopurinol 300 mg 03/18/19 21:00 03/21/19 19:54 Zyloprim PO 300 mg HS ABDIRIZAK Administration Amlodipine Besylate 2.5 mg 03/22/19 09:00 03/22/19 09:32 Norvasc PO 2.5 mg DAILY ABDIRIZAK Administration Arformoterol Tartrate 15 mcg 03/18/19 18:30 03/22/19 06:50 Brovana NEB 15 mcg BID-RT ABDIRIZAK Administration Aspirin 81 mg 03/19/19 09:00 03/22/19 09:32 Ecotrin PO 81 mg DAILY ABDIRIZAK Administration Carvedilol 12.5 mg 03/21/19 08:00 03/22/19 09:31 Coreg PO 12.5 mg BID-WM ABDIRIZAK Administration Cefdinir 300 mg 03/20/19 09:00 03/22/19 09:33 Omnicef PO 300 mg BID ABDIRIZAK Administration Doxycycline Hyclate 100 mg 03/17/19 21:00 03/22/19 09:34 Vibramycin PO 100 mg BID ABDIRIZAK Administration Montelukast Sodium 10 mg 03/18/19 21:00 03/21/19 19:55 Singulair PO 10 mg HS ABDIRIZAK Administration Nystatin 0 gm 03/17/19 17:26 03/18/19 00:11 Mycostatin Powder TOP 1 applic BID PRN Administration Topical Irritations Ondansetron HCl 4 mg 03/17/19 17:12 03/21/19 15:21 Zofran Odt PO 4 mg Q6H PRN Administration Nausea/Vomiting Pantoprazole Sodium 40 mg 03/19/19 09:00 03/22/19 09:34 Protonix PO 40 mg DAILY ABDIRIZAK Administration Sodium Chloride 10 ml 03/17/19 17:12 03/22/19 09:34 Flush - Normal Saline IVF 10 ml Q12HR PRN Administration Saline Flush - Exam General Appearance: awake alert Eye: anicteric sclera ENT: normocephalic atraumatic Neck: supple, symmetric, no JVD Heart: RRR Respiratory: no wheezes, no rales, no ronchi, normal chest expansion Gastrointestinal: soft, non-tender, non-distended, normal bowel sounds Skin - other findings: Mild lower abdominal, groin and scrotal redness Neurological: cranial nerve grossly intact Musculoskeletal: generalized weakness Psychiatric: A&O x 3 Hosp A/P (1) Cellulitis Code(s): L03.90 - CELLULITIS, UNSPECIFIED Status: Acute (2) Intertriginous candidiasis Code(s): B37.2 - CANDIDIASIS OF SKIN AND NAIL Status: Acute (3) GARIMA (acute kidney injury) Code(s): N17.9 - ACUTE KIDNEY FAILURE, UNSPECIFIED Status: Acute (4) Hyperkalemia Code(s): E87.5 - HYPERKALEMIA Status: Acute (5) CKD (chronic kidney disease) stage 3, GFR 30-59 ml/min Code(s): N18.3 - CHRONIC KIDNEY DISEASE, STAGE 3 (MODERATE) Status: Acute (6) Obstructive uropathy Code(s): N13.9 - OBSTRUCTIVE AND REFLUX UROPATHY, UNSPECIFIED Status: Acute (7) Bilateral hydronephrosis Code(s): N13.30 - UNSPECIFIED HYDRONEPHROSIS Status: Acute (8) B-cell lymphoma Code(s): C85.10 - UNSPECIFIED B-CELL LYMPHOMA, UNSPECIFIED SITE Status: Acute (9) Bilateral lower extremity edema Code(s): R60.0 - LOCALIZED EDEMA Status: Acute (10) Swelling of male genital structure Code(s): N50.89 - OTHER SPECIFIED DISORDERS OF THE MALE GENITAL ORGANS Status : Acute (11) COPD (chronic obstructive pulmonary disease) Status: Acute (12) Diabetes mellitus Code(s): E11.9 - TYPE 2 DIABETES MELLITUS WITHOUT COMPLICATIONS Status: Acute (13) HTN (hypertension) Code(s): I10 - ESSENTIAL (PRIMARY) HYPERTENSION Status: Acute (14) Metabolic acidosis Code(s): E87.2 - ACIDOSIS Status: Acute (15) Physical deconditioning Code(s): R53.81 - OTHER MALAISE Status: Acute (16) Chronic anemia Code(s): D64.9 - ANEMIA, UNSPECIFIED Status: Acute (17) CAD (coronary artery disease) Code(s): I25.10 - ATHSCL HEART DISEASE OF [place] CORONARY ARTERY W/O ANG PCTRS Status: Acute - Plan Continue antibiotic, and bolden drainage. Continue amlodipine and coreg for BP control. Will increase amlodipine dose if BP remain suboptimal Avoid diuretic and nephrotoxic agents. Continue Nystatin powder to intertrigineous areas Elevated lower extremities. Continue other treatments PT/OT eval and treat Awaiting placement. Oncology contemplating inpatient treatment of lymphoma. Care plan discussed with daughter
--- NOTE | 2019-03-22 14:50 | PDOC.MOPN ---
Interval History: no complaints. - Vital Signs Vital Signs: Vital Signs (12 hours) Temp Pulse Resp BP Pulse Ox 03/22/19 12:00 98.0 F 81 20 158/74 H 94 L 03/22/19 10:19 83 14 97 03/22/19 09:32 86 03/22/19 08:05 97 03/22/19 08:03 98.3 F 86 18 143/70 H 95 03/22/19 06:50 87 16 99 03/22/19 03:59 97.5 F L 83 18 165/77 H 97 Weight Weight 226 lb - Physical Exam General: Alert, Oriented x3, No acute distress HEENT: Atraumatic, PERRLA, EOMI, Mucous membr. moist/pink Lungs: Clear to auscultation, Normal air movement Cardiovascular: Regular rate, Normal S1, Normal S2, No murmurs, Gallops, Rubs Abdomen: Normal bowel sounds, Soft, No tenderness, No hepatospenomegaly, No masses Extremities: Other Skin: No rashes, No breakdown, No significant lesion Neurological: Normal speech Psych/Mental Status: Mental status NL - Labs Result Diagrams: 03/21/19 04:19 03/21/19 04:19 Lab results: Laboratory Results - last 24 hr 03/22/19 10:20: POC Glucose 113 H 03/22/19 05:40: POC Glucose 113 H 03/21/19 20:21: POC Glucose 139 H 03/21/19 15:09: POC Glucose 150 H Status: lab reviewed by me A/P - Problem (1) GARIMA (acute kidney injury) Current Visit: Yes Code(s): N17.9 - ACUTE KIDNEY FAILURE, UNSPECIFIED Status : Acute (2) B-cell lymphoma Current Visit: Yes Code(s): C85.10 - UNSPECIFIED B-CELL LYMPHOMA, UNSPECIFIED SITE Status: Acute (3) Bilateral hydronephrosis Current Visit: Yes Code(s): N13.30 - UNSPECIFIED HYDRONEPHROSIS Status: Acute (4) Bilateral lower extremity edema Current Visit: Yes Code(s): R60.0 - LOCALIZED EDEMA Status: Acute (5) Cellulitis Current Visit: Yes Code(s): L03.90 - CELLULITIS, UNSPECIFIED Status: Acute (6) Physical deconditioning Current Visit: Yes Code(s): R53.81 - OTHER MALAISE Status: Acute - Plan Plan: transfer to Oncology. Dr. Lawson to discuss chemo options with patient. Likely receive cycle 1 here then to swing bed to recover. Patient understands plan.
--- NOTE | 2019-03-22 18:37 | PRG ---
DATE OF SERVICE: 03/22/2019 OBJECTIVE: VITAL SIGNS: The patient is noted with the following vital signs. Afebrile, temperature 97.7, pulse 76, respiratory rate of 20, O2 saturation 96%, and blood pressure 135/67. HEENT: Unremarkable. CARDIOVASCULAR SYSTEM: First and second heart sounds were heard. RESPIRATORY SYSTEM: Clear to auscultation. DIGESTIVE SYSTEM: Revealed a benign abdomen. EXTREMITIES: No peripheral edema. SKIN: No new gross rash. LYMPHATICS: No peripheral lymphadenopathy. IMPRESSION: 1. Acute kidney injury, which seems to have resolved, in the context of obstructive uropathy. 2. Obstructive uropathy. 3. B-cell lymphoma. PLAN: 1. We will continue with current renal supportive measures. 2. Further management to be dependent on the clinical course. Job ID: [id number]
[2019-03-22] MEDS ORDERED: Acetaminophen 325 MG TAB PO PRN (20:12)
[2019-03-22] MEDS ORDERED: Ondansetron ODT 4 MG TAB PO PRN (20:13)
[2019-03-22] MEDS ORDERED: Ondansetron PF 4 MG/2 ML Vial IVP PRN (20:13)
[2019-03-22] MEDS ORDERED: Acetaminophen 650 MG Suppository PR PRN (20:13)
[2019-03-22] MEDS ORDERED: Dextrose 5% in Water 1,000 ML IV PRN (20:14)
[2019-03-22] MEDS ORDERED: Dextrose 50% Abboject 50 ML SYRINGE SLOW IVP PRN (20:14)
[2019-03-22] MEDS ORDERED: HumaLOG 300 UNITS/3 ML VIAL SC PRN ×2 (20:15→20:16)
[2019-03-22] MEDS ORDERED: Gaviscon Tablet PO PRN (20:17)
[2019-03-22] MEDS ORDERED: Polyethylene Glycol 3350 17 GM Packet PO PRN (20:17)
[2019-03-22] MEDS: Montelukast Sodium 10 mg Tablet PO SCH (20:48)
[2019-03-22] MEDS: Allopurinol 300 MG TAB PO SCH (20:49)
[2019-03-23] MEDS: Arformoterol 15 MCG/2 ML NEB NEB SCH ×2 (06:47→20:03)
--- NOTE | 2019-03-23 08:09 | PDOC.MOPN ---
Interval History: he c/o being very cold. he says his edema is much better. mostly he wants to go back to rehab with his , he says he cannot stand to not be with her - Vital Signs Vital Signs: Vital Signs (12 hours) Temp Pulse Resp BP Pulse Ox 03/23/19 06:47 76 16 94 L 03/23/19 03:54 97.8 F 76 16 156/67 H 95 03/22/19 23:43 98.6 F 76 16 138/65 94 L Weight Weight 226 lb - Physical Exam General: Alert HEENT: Atraumatic Lungs: Clear to auscultation Cardiovascular: Regular rate Abdomen: Normal bowel sounds, Soft, Other (mild tenderness in R side, no g/r) Extremities: No clubbing, Other (trace edema [place]) Skin: No rashes Psych/Mental Status: Mental status NL - Labs Result Diagrams: 03/21/19 04:19 03/21/19 04:19 Lab results: Laboratory Results - last 24 hr 03/23/19 05:17: POC Glucose 108 03/22/19 20:12: POC Glucose 112 H 03/22/19 16:26: POC Glucose 144 H 03/22/19 10:20: POC Glucose 113 H A/P - Problem (1) B-cell lymphoma Current Visit: Yes Code(s): C85.10 - UNSPECIFIED B-CELL LYMPHOMA, UNSPECIFIED SITE Status: Acute (2) Bilateral hydronephrosis Current Visit: Yes Code(s): N13.30 - UNSPECIFIED HYDRONEPHROSIS Status: Acute (3) CAD (coronary artery disease) Current Visit: Yes Code(s): I25.10 - ATHSCL HEART DISEASE OF [place] CORONARY ARTERY W/O ANG PCTRS Status: Acute (4) CKD (chronic kidney disease) stage 3, GFR 30-59 ml/min Current Visit: Yes Code(s): N18.3 - CHRONIC KIDNEY DISEASE, STAGE 3 (MODERATE ) Status: Acute (5) COPD (chronic obstructive pulmonary disease) Current Visit: Yes Status: Acute (6) Diabetes mellitus Current Visit: Yes Code(s): E11.9 - TYPE 2 DIABETES MELLITUS WITHOUT COMPLICATIONS Status: Acute (7) HTN (hypertension) Current Visit: Yes Code(s): I10 - ESSENTIAL (PRIMARY) HYPERTENSION Status: Acute - Plan Plan: 1. we discussed that treatment might make him sicker and he is "not sure" he is ready for that. repeatedly he [facility] . I suggested we could maybe send him back there sooner if we did not treat him and he would like to think about. he does not want to do anbything without me talking to his but she is in [facility] 2. consider cytoxan and rituxan with steroids tomorrow. i would like to have a family meeting and discuss with palliative care before we decide to treat 3. cont PT/OT
[2019-03-23] MEDS: Amlodipine 5 MG TAB PO SCH (08:32)
[2019-03-23] MEDS: Aspirin 81 mg Enteric Coated Tablet PO SCH (08:32)
[2019-03-23] MEDS: Carvedilol 6.25 MG TAB PO SCH ×2 (08:32→17:08)
[2019-03-23] MEDS: Cefdinir 300 MG CAP PO SCH ×2 (08:34→19:57)
[2019-03-23 08:43] LABS: #Eosinphils 0.2 thou/uL (0.0-0.7); #Lymphocytes 0.9 thou/uL (1.20-3.40); #Monocytes 0.5 thou/uL (0.11-0.59); #Neutrophils 5.4 thou/uL (1.40-6.50); %Basophils 0.3 % (0.0-1.0); %Eosinophils 2.9 % (0.0-10.0); %Lymphocytes 12.9 % (21.0-51.0); %Monocytes 6.9 % (0.0-10.0); Hemoglobin 9.9 g/dL (14.0-18.0); Mean Corpuscular HGB CONC 33.5 g/dL (32.0-36.0); Mean Corpuscular Hemoglobin 31.2 pg (27.0-31.0); Mean Corpuscular Volume 93.2 fL (78.0-98.0); Mean Platelet Volume 8.4 fL (7.4-10.4); Platelet Count 201 thou/uL (130-400); RBC Distribution Width 12.4 % (11.5-14.5); Red Blood Cell (RBC) Count 3.18 mill/uL (4.70-6.10)
[2019-03-23 09:01] LABS: ALT (SGPT) 8 U/L (8-55); AST (SGOT) 13 U/L (5-34); Albumin 3.2 g/dL (3.4-4.8); Alkaline Phosphatase 92 U/L (40-110); Anion Gap 11 mmol/L (10-20); BUN (Urea Nitrogen) 23 mg/dL (8.4-25.7); Bilirubin, Total 0.4 mg/dL (0.2-1.2); Calc. Creatinine Clearance 84 mL/min (70-130); Calcium 8.7 mg/dL (7.8-10.44); Carbon Dioxide 25 mmol/L (23-31); Chloride 105 mmol/L (98-107); Estimated GFR-MDRD 67; Globulin 2.8 g/dL (2.4-3.5); Glucose 119 mg/dL (83-110); Sodium 137 mmol/L (136-145)
[2019-03-23] MEDS: Doxycycline 100 MG CAP PO SCH ×2 (09:40→19:57)
--- NOTE | 2019-03-23 09:50 | PDOC.PALCO ---
Palliative Care Consult - Consult Details Requesting Physician: Dr Lawson Reason for Consult: goals of care, assistance with communication prognosis/ disease, family support Family Members Present: Daughter Adelaide - Pertinent HPI 78 year old male with bladder cancer who was recently diagnosed with large B- cell lymphoma. Patient was sent to rehab to gain strength then undergo repeat imaging and further discuss treatment. Progressive weakness, unable to follow up at appointment with Dr Lawson, subsequent admission to the hospital for management of difficultly urinating, increasing weakness, edema. - Pertinent PMH DM, HTN, Mi in 1989, HDL, arthritis, COPD, CKD, - Social History Smoking Status: Former smoker Smoking: quit greater than 1 year Alcohol Use: none Drug Use History: none Living Situation: - Medications MAR Reviewed: Yes - Allergies Allergies/Adverse Reactions: Allergies Allergy/AdvReac Type Severity Reaction Status Date / Time sulfamethoxazole Allergy Verified 03/17/19 22:59 [From Bactrim] trimethoprim [From Bactrim] Allergy Verified 03/17/19 22:59 - Subjective Awake, alert, resting. Cold, covered with several blankets and hat. No specific complaints at time of assessment other than weakness. - Objective Vital Signs: Vital Signs - Most Recent Temp Pulse Resp BP Pulse Ox 98.4 F 76 16 142/70 H 94 L 03/23/19 08:00 03/23/19 08:32 03/23/19 08:00 03/23/19 08:00 03/23/19 08:00 Palliative Performance Scale: 30 - Physical Exam Constitutional: NAD Deviation from normal: Ill appearing, HEENT: moist MMs, sclera anicteric Respiratory: unlabored breathing Cardiovascular: RRR Gastrointestinal: soft, non-tender Musculoskeletal: edema present Neurological: moves all 4 limbs Psychiatric: A&O x 3 Deviation from normal: flat affect, sadness Skin: cap refill <2 seconds Deviation from normal: fair turgor - Problem List (1) Palliative care encounter Code(s): Z51.5 - ENCOUNTER FOR PALLIATIVE CARE Current Visit: Yes Status: Acute (2) GARIMA (acute kidney injury) Code(s): N17.9 - ACUTE KIDNEY FAILURE, UNSPECIFIED Current Visit: Yes Status : Acute (3) B-cell lymphoma Code(s): C85.10 - UNSPECIFIED B-CELL LYMPHOMA, UNSPECIFIED SITE Current Visit : Yes Status: Acute (4) Chronic anemia Code(s): D64.9 - ANEMIA, UNSPECIFIED Current Visit: Yes Status: Acute (5) Physical deconditioning Code(s): R53.81 - OTHER MALAISE Current Visit: Yes Status: Acute - Plan/Recommendations Plan: Met with Patient and his daughter "Adelaide". General history obtained. Patient shared he met his when they were very young and have been greater than 55 years. He has stated that the most important goal is to be with her. [facility]. Daughter states that she wants her dad to possibly pursue treatment. Family meeting tomorrow 03/24 in the morning. Daughter to bring in her mother and her other sister to come as well. Arranging with Dr Lawson to discuss goal of care. Palliative treatment of cancer which may inhibit patient being with his , or determine a discharge plan that allows patient to be with his . Will also revisit resuscitation status. [60] minutes spent on this encounter with >50% of the time in counseling and coordination of care. Thank you for this very appropriate consult.
[2019-03-23] MEDS: HYDROcodone/Acetaminophen 10/325 mg Tablet PO PRN ×2 (11:21→14:22)
--- NOTE | 2019-03-23 15:10 | PDOC.HOSPP ---
- Subjective Encounter Date: 03/23/19 Encounter Time: 08:08 Subjective: 78 y/o male with bladder cancer s/p treatment and on remission, recent B cell lymphoma, obstructive uropathy s/p recent bilateral uretereal stent placement admitted with worsening lower limb swelling, weakness and difficulty urinating due to genital swelling. Found to have hyperkalemia, groin and lNo fever or chills. Inpatient chemo is contemplated by oncology but patient and relatives are not certain they want to proceed with that. faamily meeting is schedule for tomorrow. - Objective Vital Signs & Weight: Vital Signs (12 hours) Temp Pulse Resp BP Pulse Ox 03/23/19 14:39 74 16 03/23/19 11:26 80 16 03/23/19 08:32 76 03/23/19 08:00 98.4 F 78 16 142/70 H 94 L 03/23/19 06:47 76 16 94 L 03/23/19 03:54 97.8 F 76 16 156/67 H 95 Weight Weight 226 lb I&O: 03/22/19 03/23/19 03/24/19 06:59 06:59 06:59 Intake Total 100 Output Total 1300 400 Balance -1200 -400 Result Diagrams: 03/23/19 08:23 03/23/19 08:23 Additional Labs: Accuchecks 03/23/19 03/22/19 03/22/19 05:17 20:12 16:26 POC Glucose 108 112 H 144 H Hospitalist ROS - Medication Medications: Active Medications Generic Name Dose Route Start Last Admin Trade Name Freq PRN Reason Stop Dose Admin Hydrocodone Bitart/Acetaminophen 1 tab 03/22/19 20:17 03/23/19 14:22 [place] 10/325 PO 1 tab Q4H PRN Administration Pain>4 Albuterol/Ipratropium 3 ml 03/23/19 07:00 03/23/19 14:39 Duoneb NEB 3 ml QID-RT ABDIRIZAK Administration Allopurinol 300 mg 03/22/19 21:00 03/22/19 20:49 Zyloprim PO 300 mg HS ABDIRIZAK Administration Amlodipine Besylate 2.5 mg 03/23/19 09:00 03/23/19 08:32 Norvasc PO 2.5 mg DAILY ABDIRIZAK Administration Arformoterol Tartrate 15 mcg 03/23/19 06:30 03/23/19 06:47 Brovana NEB 15 mcg BID-RT ABDIRIZAK Administration Aspirin 81 mg 03/23/19 09:00 03/23/19 08:32 Ecotrin PO 81 mg DAILY ABDIRIZAK Administration Carvedilol 12.5 mg 03/23/19 08:00 03/23/19 08:32 Coreg PO 12.5 mg BID-WM ABDIRIZAK Administration Cefdinir 300 mg 03/22/19 21:00 03/23/19 08:34 Omnicef PO 300 mg BID ABDIRIZAK Administration Doxycycline Hyclate 100 mg 03/22/19 21:00 03/23/19 09:40 Vibramycin PO 100 mg BID ABDIRIZAK Administration Montelukast Sodium 10 mg 03/22/19 21:00 03/22/19 20:48 Singulair PO 10 mg HS ABDIRIZAK Administration Nystatin 0 gm 03/17/19 17:26 03/18/19 00:11 Mycostatin Powder TOP 1 applic BID PRN Administration Topical Irritations Pantoprazole Sodium 40 mg 03/23/19 09:00 03/23/19 08:33 Protonix PO 40 mg DAILY ABDIRIZAK Administration - Exam General Appearance: awake alert Eye: anicteric sclera ENT: normocephalic atraumatic Neck: supple, symmetric Heart: RRR Respiratory: no wheezes, no rales, no ronchi, normal chest expansion Gastrointestinal: soft, non-tender, normal bowel sounds Gastrointestinal - other findings: lower abdominal and groin area intertrigineous erythema is improved Extremities - other findings: trace to mild bilateral leg edema Neurological: cranial nerve grossly intact, no focal deficits Psychiatric: A&O x 3 Psychiatric - other findings: memory lapses noted. Hosp A/P (1) Intertriginous candidiasis Code(s): B37.2 - CANDIDIASIS OF SKIN AND NAIL Status: Acute (2) Cellulitis Code(s): L03.90 - CELLULITIS, UNSPECIFIED Status: Acute (3) GARIMA (acute kidney injury) Code(s): N17.9 - ACUTE KIDNEY FAILURE, UNSPECIFIED Status: Acute (4) Hyperkalemia Code(s): E87.5 - HYPERKALEMIA Status: Acute (5) CKD (chronic kidney disease) stage 3, GFR 30-59 ml/min Code(s): N18.3 - CHRONIC KIDNEY DISEASE, STAGE 3 (MODERATE) Status: Acute (6) Obstructive uropathy Code(s): N13.9 - OBSTRUCTIVE AND REFLUX UROPATHY, UNSPECIFIED Status: Acute (7) Bilateral hydronephrosis Code(s): N13.30 - UNSPECIFIED HYDRONEPHROSIS Status: Acute (8) B-cell lymphoma Code(s): C85.10 - UNSPECIFIED B-CELL LYMPHOMA, UNSPECIFIED SITE Status: Acute (9) Bilateral lower extremity edema Code(s): R60.0 - LOCALIZED EDEMA Status: Acute (10) Swelling of male genital structure Code(s): N50.89 - OTHER SPECIFIED DISORDERS OF THE MALE GENITAL ORGANS Status : Acute (11) COPD (chronic obstructive pulmonary disease) Status: Acute (12) Diabetes mellitus Code(s): E11.9 - TYPE 2 DIABETES MELLITUS WITHOUT COMPLICATIONS Status: Acute (13) HTN (hypertension) Code(s): I10 - ESSENTIAL (PRIMARY) HYPERTENSION Status: Acute (14) Metabolic acidosis Code(s): E87.2 - ACIDOSIS Status: Acute (15) Physical deconditioning Code(s): R53.81 - OTHER MALAISE Status: Acute (16) Chronic anemia Code(s): D64.9 - ANEMIA, UNSPECIFIED Status: Acute (17) CAD (coronary artery disease) Code(s): I25.10 - ATHSCL HEART DISEASE OF [place] CORONARY ARTERY W/O ANG PCTRS Status: Acute - Plan Continue Nystatin powder to intertrigineous areas Dc antibiotic. Continue amlodipine and coreg for BP control. Avoid diuretic and nephrotoxic agents. Elevated lower extremities. Continue other treatments PT/OT eval and treat Oncology contemplating inpatient treatment of lymphoma. family meeting about chemotherapy scheduled for tomorrow Care plan discussed with daughter
[2019-03-23] MEDS ORDERED: Methyl Salicylate/Menthol 85 GM TUBE TOP PRN (15:43)
--- NOTE | 2019-03-23 18:32 | PRG ---
DATE OF SERVICE: 03/23/2019 SUBJECTIVE: The patient is seen and examined, noted with the following vital signs. OBJECTIVE: VITAL SIGNS: Afebrile, temperature 97.8, pulse 76, respiratory rate of 16, O2 saturations of 95%, and blood pressure 156/67. HEENT: Unremarkable. CARDIOVASCULAR SYSTEM: First and second heart sounds were heard. RESPIRATORY SYSTEM: Clear to auscultation. DIGESTIVE SYSTEM: Revealed a benign abdomen. EXTREMITIES: Showed improved peripheral edema. IMPRESSION: 1. Acute kidney injury in the context of obstructive uropathy, much improved. 2. B-cell lymphoma. 3. Obstructive uropathy. PLAN: 1. Continue current supportive treatment. 2. Further management to be dependent on the clinical course. Job ID: [id number]
[2019-03-23] MEDS: Allopurinol 300 MG TAB PO SCH (19:57)
[2019-03-23] MEDS: Montelukast Sodium 10 mg Tablet PO SCH (19:57)
[2019-03-24 05:05] LABS: #Eosinphils 0.3 thou/uL (0.0-0.7); #Monocytes 0.7 thou/uL (0.11-0.59); #Neutrophils 5.1 thou/uL (1.40-6.50); %Basophils 0.4 % (0.0-1.0); %Eosinophils 3.6 % (0.0-10.0); %Lymphocytes 13.8 % (21.0-51.0); %Monocytes 9.9 % (0.0-10.0); %Neutrophils 72.3 % (42.0-75.0); Hemoglobin 10.9 g/dL (14.0-18.0); Mean Corpuscular HGB CONC 33.1 g/dL (32.0-36.0); Mean Corpuscular Hemoglobin 30.9 pg (27.0-31.0); Mean Corpuscular Volume 93.3 fL (78.0-98.0); Mean Platelet Volume 8.8 fL (7.4-10.4); Platelet Count 185 thou/uL (130-400); RBC Distribution Width 12.6 % (11.5-14.5); Red Blood Cell (RBC) Count 3.53 mill/uL (4.70-6.10); White Blood Cell (WBC) Count 7.1 thou/uL (4.8-10.8)
[2019-03-24 05:24] LABS: ALT (SGPT) Less than 7 U/L (8-55); AST (SGOT) 14 U/L (5-34); Albumin 3.1 g/dL (3.4-4.8); Alkaline Phosphatase 91 U/L (40-110); Anion Gap 14 mmol/L (10-20); BUN (Urea Nitrogen) 28 mg/dL (8.4-25.7); Bilirubin, Total 0.4 mg/dL (0.2-1.2); Calc. Creatinine Clearance 78 mL/min (70-130); Calcium 8.6 mg/dL (7.8-10.44); Carbon Dioxide 20 mmol/L (23-31); Chloride 104 mmol/L (98-107); Estimated GFR-MDRD 62; Glucose 113 mg/dL (83-110); Potassium 4.1 mmol/L (3.5-5.1); Protein, Total 6.1 g/dL (5.8-8.1); Sodium 134 mmol/L (136-145)
[2019-03-24] MEDS ORDERED: diphenhydrAMINE 50 MG in Sodium Chloride 0.9% 50 ML IVPB PRN (06:47)
[2019-03-24] MEDS ORDERED: Rituximab 500 MG, Rituximab 200 MG in Sodium Chloride 0.9% 500 ML IVPB SCH (07:00)
[2019-03-24] MEDS ORDERED: Rituximab 100 MG in Sodium Chloride 0.9% 100 ML IVPB SCH (07:00)
[2019-03-24] MEDS ORDERED: Cyclophosphamide 1 GM, Cyclophosphamide 500 MG in Sodium Chloride 0.9% 250 ML 250 ML IVPB SCH (07:00)
[2019-03-24] MEDS ORDERED: predniSONE 50 MG TAB PO SCH (07:00)
[2019-03-24] MEDS: Arformoterol 15 MCG/2 ML NEB NEB SCH ×2 (08:24→19:17)
[2019-03-24] MEDS: HYDROcodone/Acetaminophen 10/325 mg Tablet PO PRN (08:38)
[2019-03-24] MEDS: Carvedilol 6.25 MG TAB PO SCH ×2 (08:41→16:39)
[2019-03-24] MEDS: Amlodipine 5 MG TAB PO SCH (08:42)
[2019-03-24] MEDS: Aspirin 81 mg Enteric Coated Tablet PO SCH (09:07)
--- NOTE | 2019-03-24 12:11 | PDOC.HOSPP ---
- Subjective Encounter Date: 03/24/19 Encounter Time: 12:09 Subjective: 78 y/o male with bladder cancer s/p treatment and on remission, recent B cell lymphoma, obstructive uropathy s/p recent bilateral uretereal stent placement admitted with worsening lower limb swelling, weakness and difficulty urinating due to genital swelling. Found to have hyperkalemia, groin. No fever or chills. - Objective Vital Signs & Weight: Vital Signs (12 hours) Temp Pulse Resp BP BP Pulse Ox 03/24/19 10:37 84 18 03/24/19 08:42 82 143/77 H 03/24/19 08:41 143/77 H 03/24/19 08:24 82 16 95 03/24/19 08:00 97.7 F 87 20 143/77 H 97 03/24/19 07:42 80 16 95 Weight Weight 226 lb I&O: 03/23/19 03/24/19 03/25/19 06:59 06:59 06:59 Intake Total 730 Output Total 400 1050 Balance -400 -320 Result Diagrams: 03/24/19 04:49 03/24/19 04:49 Additional Labs: Accuchecks 03/24/19 03/24/19 03/23/19 11:04 05:19 19:59 POC Glucose 149 H 120 H 128 H 03/23/19 16:38 POC Glucose 170 H Hospitalist ROS - Medication Medications: Active Medications Generic Name Dose Route Start Last Admin Trade Name Freq PRN Reason Stop Dose Admin Hydrocodone Bitart/Acetaminophen 1 tab 03/22/19 20:17 03/24/19 08:38 [place] 10/325 PO 1 tab Q4H PRN Administration Pain>4 Albuterol/Ipratropium 3 ml 03/23/19 07:00 03/24/19 10:37 Duoneb NEB 3 ml QID-RT ABDIRIZAK Administration Allopurinol 300 mg 03/22/19 21:00 03/23/19 19:57 Zyloprim PO 300 mg HS ABDIRIZAK Administration Amlodipine Besylate 2.5 mg 03/23/19 09:00 03/24/19 08:42 Norvasc PO 2.5 mg DAILY ABDIRIZAK Administration Arformoterol Tartrate 15 mcg 03/23/19 06:30 03/24/19 08:24 Brovana NEB 15 mcg BID-RT ABDIRIZAK Administration Aspirin 81 mg 03/23/19 09:00 03/24/19 09:07 Ecotrin PO 81 mg DAILY ABDIRIZAK Administration Carvedilol 12.5 mg 03/23/19 08:00 03/24/19 08:41 Coreg PO 12.5 mg BID-WM ABDIRIZAK Administration Menthol/Methyl Salicylate 120 gm 03/23/19 15:43 03/24/19 08:47 Muscle Rub Cream (Bengay) TOP 120 gm PRN PRN Administration Muscle Pain Montelukast Sodium 10 mg 03/22/19 21:00 03/23/19 19:57 Singulair PO 10 mg HS ABDIRIZAK Administration Nystatin 0 gm 03/17/19 17:26 03/18/19 00:11 Mycostatin Powder TOP 1 applic BID PRN Administration Topical Irritations Pantoprazole Sodium 40 mg 03/23/19 09:00 03/24/19 08:42 Protonix PO 40 mg DAILY ABDIRIZAK Administration - Exam General Appearance: awake alert Eye: anicteric sclera ENT: normocephalic atraumatic Neck: supple, no JVD Heart: RRR Respiratory: no wheezes, no rales, no ronchi, normal chest expansion, no tachypnea Gastrointestinal: soft, non-tender, non-distended, normal bowel sounds Extremities: no cyanosis, no edema Neurological: cranial nerve grossly intact, no focal deficits Musculoskeletal: generalized weakness Psychiatric: A&O x 3 Hosp A/P (1) Intertriginous candidiasis Code(s): B37.2 - CANDIDIASIS OF SKIN AND NAIL Status: Acute (2) Cellulitis Code(s): L03.90 - CELLULITIS, UNSPECIFIED Status: Acute (3) GARIMA (acute kidney injury) Code(s): N17.9 - ACUTE KIDNEY FAILURE, UNSPECIFIED Status: Acute (4) Hyperkalemia Code(s): E87.5 - HYPERKALEMIA Status: Acute (5) CKD (chronic kidney disease) stage 3, GFR 30-59 ml/min Code(s): N18.3 - CHRONIC KIDNEY DISEASE, STAGE 3 (MODERATE) Status: Acute (6) Obstructive uropathy Code(s): N13.9 - OBSTRUCTIVE AND REFLUX UROPATHY, UNSPECIFIED Status: Acute (7) Bilateral hydronephrosis Code(s): N13.30 - UNSPECIFIED HYDRONEPHROSIS Status: Acute (8) B-cell lymphoma Code(s): C85.10 - UNSPECIFIED B-CELL LYMPHOMA, UNSPECIFIED SITE Status: Acute (9) Bilateral lower extremity edema Code(s): R60.0 - LOCALIZED EDEMA Status: Acute (10) Swelling of male genital structure Code(s): N50.89 - OTHER SPECIFIED DISORDERS OF THE MALE GENITAL ORGANS Status : Acute (11) COPD (chronic obstructive pulmonary disease) Status: Acute (12) Diabetes mellitus Code(s): E11.9 - TYPE 2 DIABETES MELLITUS WITHOUT COMPLICATIONS Status: Acute (13) HTN (hypertension) Code(s): I10 - ESSENTIAL (PRIMARY) HYPERTENSION Status: Acute (14) Metabolic acidosis Code(s): E87.2 - ACIDOSIS Status: Acute (15) Physical deconditioning Code(s): R53.81 - OTHER MALAISE Status: Acute (16) Chronic anemia Code(s): D64.9 - ANEMIA, UNSPECIFIED Status: Acute (17) CAD (coronary artery disease) Code(s): I25.10 - ATHSCL HEART DISEASE OF [place] CORONARY ARTERY W/O ANG PCTRS Status: Acute - Plan Continue Nystatin powder to intertrigineous areas Continue amlodipine and coreg for BP control. Avoid diuretic and nephrotoxic agents. Elevated lower extremities. Continue other treatments PT/OT eval and treat For rituximab once available as per oncology
--- NOTE | 2019-03-24 13:28 | PDOC.PALFU ---
Palliative Care Follow-up Note Dr Lawson discussed options with patient in relation to palliating cancer. Patient main goal is to be with his who is currently at a [facility] for the next few weeks and cook Thanksgiving Dinner. Patient is optioning to use high dose steroid and rituxan , projected date Thursday. Then if able discharge to [facility] where his is. He would then follow up at the Cancer [facility] with Dr Lawson to discuss next course of care. Visited with patient, his , and daughters and Mr Burdick remains wishing to have all resuscitative measures carried forth if required to attempt to sustain his life.
--- NOTE | 2019-03-24 16:06 | PDOC.MOPN ---
Interval History: he is here with his family, no pain but is insistent his most important goal is spending time with his and cooking thanksgiving dinner - Vital Signs Vital Signs: Vital Signs (12 hours) Temp Pulse Resp BP BP Pulse Ox 03/24/19 15:01 84 18 95 03/24/19 10:37 84 18 03/24/19 08:42 82 143/77 H 03/24/19 08:41 143/77 H 03/24/19 08:24 82 16 95 03/24/19 08:00 97.7 F 87 20 143/77 H 97 03/24/19 07:42 80 16 95 Weight Weight 226 lb - Physical Exam General: Alert HEENT: Atraumatic Lungs: Clear to auscultation Cardiovascular: Regular rate Abdomen: Normal bowel sounds Extremities: No clubbing - Labs Result Diagrams: 03/24/19 04:49 03/24/19 04:49 Lab results: Laboratory Results - last 24 hr 03/24/19 11:04: POC Glucose 149 H 03/24/19 05:19: POC Glucose 120 H 03/24/19 04:49: WBC 7.1, RBC 3.53 L, Hgb 10.9 L, Hct 32.9 L, MCV 93.3, MCH 30.9 , MCHC 33.1, RDW 12.6, Plt Count 185, MPV 8.8, Neutrophils % 72.3, Lymphocytes % 13.8 L, Monocytes % 9.9, Eosinophils % 3.6, Basophils % 0.4, Neutrophils # 5.1 , Lymphocytes # 1.0 L, Monocytes # 0.7 H, Eosinophils # 0.3, Basophils # 0.0 03/24/19 04:49: Sodium 134 L, Potassium 4.1, Chloride 104, Carbon Dioxide 20 L, Anion Gap 14, BUN 28 H, Creatinine 1.15, Estimated GFR (MDRD) 62, Glucose 113 H , Calcium 8.6, Total Bilirubin 0.4, AST 14, ALT Less than 7 L, Alkaline Phosphatase 91, Serum Total Protein 6.1, Albumin 3.1 L, Globulin 3.0, Albumin/ Globulin Ratio 1.0 L 03/23/19 19:59: POC Glucose 128 H 03/23/19 16:38: POC Glucose 170 H A/P - Problem (1) B-cell lymphoma Current Visit: Yes Code(s): C85.10 - UNSPECIFIED B-CELL LYMPHOMA, UNSPECIFIED SITE Status: Acute (2) Bilateral hydronephrosis Current Visit: Yes Code(s): N13.30 - UNSPECIFIED HYDRONEPHROSIS Status: Acute (3) CAD (coronary artery disease) Current Visit: Yes Code(s): I25.10 - ATHSCL HEART DISEASE OF [place] CORONARY ARTERY W/O ANG PCTRS Status: Acute (4) CKD (chronic kidney disease) stage 3, GFR 30-59 ml/min Current Visit: Yes Code(s): N18.3 - CHRONIC KIDNEY DISEASE, STAGE 3 (MODERATE ) Status: Acute (5) COPD (chronic obstructive pulmonary disease) Current Visit: Yes Status: Acute (6) Diabetes mellitus Current Visit: Yes Code(s): E11.9 - TYPE 2 DIABETES MELLITUS WITHOUT COMPLICATIONS Status: Acute (7) HTN (hypertension) Current Visit: Yes Code(s): I10 - ESSENTIAL (PRIMARY) HYPERTENSION Status: Acute - Plan Plan: we had a long discussion with the family about prognosis. they are aware hat with his other medical problems that treatment is not curative but is palliative. he would like some treatment to help him get through the holidays. therefore we will trry rituxan and steroids in the next few days. he then can d/ c to the [facility], hopefully he can return to the clinic i 1-2 weeks to get a second dose of weekly rituxan
--- NOTE | 2019-03-24 16:32 | PRG ---
DATE OF SERVICE: 03/24/2019 SUBJECTIVE: The patient is noted with the following vital signs. OBJECTIVE: VITAL SIGNS: Blood pressure 143/77, afebrile, pulse 84, respiratory rate of 18, and 95% O2 saturation on room air. HEENT: Unremarkable. CARDIOVASCULAR: First and second heart sounds were heard. RESPIRATORY: Clear to auscultation. DIGESTIVE: Revealed a benign abdomen. EXTREMITIES: Showed improved peripheral edema. SKIN: No new gross rash. LYMPHATICS: No peripheral lymphadenopathy. IMPRESSION: 1. Obstructive uropathy, which seems to have much improved. 2. B-cell lymphoma contributing to the obstructive uropathy. PLAN: 1. Continue current renal supportive measures. 2. Further management will be dependent on the clinical course and further recommendations from the Oncology Service. Job ID: [id number]
[2019-03-24] MEDS: Montelukast Sodium 10 mg Tablet PO SCH (20:38)
[2019-03-24] MEDS: Allopurinol 300 MG TAB PO SCH (20:38)
[2019-03-25] MEDS: HYDROcodone/Acetaminophen 10/325 mg Tablet PO PRN ×3 (02:08→21:01)
[2019-03-25] MEDS: Arformoterol 15 MCG/2 ML NEB NEB SCH ×2 (07:49→18:23)
[2019-03-25] MEDS: Amlodipine 5 MG TAB PO SCH (08:35)
[2019-03-25] MEDS: Carvedilol 6.25 MG TAB PO SCH ×2 (08:35→16:16)
[2019-03-25] MEDS: Aspirin 81 mg Enteric Coated Tablet PO SCH (08:35)
[2019-03-25 08:40] LABS: Anion Gap 10 mmol/L (10-20); BUN (Urea Nitrogen) 31 mg/dL (8.4-25.7); Calc. Creatinine Clearance 77 mL/min (70-130); Calcium 8.7 mg/dL (7.8-10.44); Carbon Dioxide 26 mmol/L (23-31); Chloride 104 mmol/L (98-107); Estimated GFR-MDRD 60; Glucose 116 mg/dL (83-110); Potassium 4.1 mmol/L (3.5-5.1); Sodium 136 mmol/L (136-145)
--- NOTE | 2019-03-25 12:22 | PDOC.HOSPP ---
- Subjective Encounter Date: 03/25/19 Encounter Time: 12:20 Subjective: 78 y/o male with bladder cancer s/p treatment and on remission, recent B cell lymphoma, obstructive uropathy s/p recent bilateral uretereal stent placement admitted with worsening lower limb swelling, weakness and difficulty urinating due to genital swelling. Feeling better. For rituximab treatment today. No new problem. - Objective Vital Signs & Weight: Vital Signs (12 hours) Temp Pulse Resp BP BP Pulse Ox 03/25/19 09:56 70 18 96 03/25/19 08:35 80 143/77 H 03/25/19 08:00 16 L 03/25/19 07:52 80 16 95 03/25/19 07:49 80 16 95 03/25/19 07:36 98.4 F 84 16 156/69 H 98 Weight Weight 226 lb I&O: 03/24/19 03/25/19 03/26/19 06:59 06:59 06:59 Intake Total 730 1000 Output Total 1050 650 Balance -320 350 Result Diagrams: 03/24/19 04:49 03/25/19 07:49 Additional Labs: Accuchecks 03/25/19 03/25/19 03/24/19 10:59 06:39 20:43 POC Glucose 135 H 121 H 137 H 03/24/19 17:14 POC Glucose 137 H Hospitalist ROS - Medication Medications: Active Medications Generic Name Dose Route Start Last Admin Trade Name Freq PRN Reason Stop Dose Admin Hydrocodone Bitart/Acetaminophen 1 tab 03/22/19 20:17 03/25/19 08:56 [place] 10/325 PO 1 tab Q4H PRN Administration Pain>4 Albuterol/Ipratropium 3 ml 03/23/19 07:00 03/25/19 09:56 Duoneb NEB 3 ml QID-RT ABDIRIZAK Administration Allopurinol 300 mg 03/22/19 21:00 03/24/19 20:38 Zyloprim PO 300 mg HS ABDIRIZAK Administration Amlodipine Besylate 2.5 mg 03/23/19 09:00 03/25/19 08:35 Norvasc PO 2.5 mg DAILY ABDIRIZAK Administration Arformoterol Tartrate 15 mcg 03/23/19 06:30 03/25/19 07:49 Brovana NEB 15 mcg BID-RT ABDIRIZAK Administration Aspirin 81 mg 03/23/19 09:00 03/25/19 08:35 Ecotrin PO 81 mg DAILY ABDIRIZAK Administration Carvedilol 12.5 mg 03/23/19 08:00 03/25/19 08:35 Coreg PO 12.5 mg BID-WM ABDIRIZAK Administration Menthol/Methyl Salicylate 120 gm 03/23/19 15:43 03/24/19 08:47 Muscle Rub Cream (Bengay) TOP 120 gm PRN PRN Administration Muscle Pain Montelukast Sodium 10 mg 03/22/19 21:00 03/24/19 20:38 Singulair PO 10 mg HS ABDIRIZAK Administration Nystatin 0 gm 03/17/19 17:26 03/18/19 00:11 Mycostatin Powder TOP 1 applic BID PRN Administration Topical Irritations Ondansetron HCl 4 mg 03/22/19 20:13 03/24/19 16:39 Zofran Odt PO 4 mg Q6H PRN Administration Nausea/Vomiting Pantoprazole Sodium 40 mg 03/23/19 09:00 03/25/19 08:36 Protonix PO 40 mg DAILY ABDIRIZAK Administration - Exam General Appearance: awake alert Eye: anicteric sclera ENT: normocephalic atraumatic Neck: supple, symmetric Heart: RRR Respiratory: no wheezes, no rales, no ronchi, normal chest expansion Gastrointestinal: soft, non-tender, non-distended, normal bowel sounds Extremities: no cyanosis, no edema Neurological: cranial nerve grossly intact, no focal deficits Psychiatric: normal affect, A&O x 3 Hosp A/P (1) B-cell lymphoma Code(s): C85.10 - UNSPECIFIED B-CELL LYMPHOMA, UNSPECIFIED SITE Status: Acute (2) Intertriginous candidiasis Code(s): B37.2 - CANDIDIASIS OF SKIN AND NAIL Status: Acute (3) Cellulitis Code(s): L03.90 - CELLULITIS, UNSPECIFIED Status: Acute (4) GARIMA (acute kidney injury) Code(s): N17.9 - ACUTE KIDNEY FAILURE, UNSPECIFIED Status: Acute (5) Hyperkalemia Code(s): E87.5 - HYPERKALEMIA Status: Acute (6) CKD (chronic kidney disease) stage 3, GFR 30-59 ml/min Code(s): N18.3 - CHRONIC KIDNEY DISEASE, STAGE 3 (MODERATE) Status: Acute (7) Obstructive uropathy Code(s): N13.9 - OBSTRUCTIVE AND REFLUX UROPATHY, UNSPECIFIED Status: Acute (8) Bilateral hydronephrosis Code(s): N13.30 - UNSPECIFIED HYDRONEPHROSIS Status: Acute (9) Bilateral lower extremity edema Code(s): R60.0 - LOCALIZED EDEMA Status: Acute (10) Swelling of male genital structure Code(s): N50.89 - OTHER SPECIFIED DISORDERS OF THE MALE GENITAL ORGANS Status : Acute (11) COPD (chronic obstructive pulmonary disease) Status: Acute (12) Diabetes mellitus Code(s): E11.9 - TYPE 2 DIABETES MELLITUS WITHOUT COMPLICATIONS Status: Acute (13) HTN (hypertension) Code(s): I10 - ESSENTIAL (PRIMARY) HYPERTENSION Status: Acute (14) Metabolic acidosis Code(s): E87.2 - ACIDOSIS Status: Acute (15) Physical deconditioning Code(s): R53.81 - OTHER MALAISE Status: Acute (16) Chronic anemia Code(s): D64.9 - ANEMIA, UNSPECIFIED Status: Acute (17) CAD (coronary artery disease) Code(s): I25.10 - ATHSCL HEART DISEASE OF [place] CORONARY ARTERY W/O ANG PCTRS Status: Acute - Plan For rituximab treatment today as per oncology. Continue Nystatin powder to intertrigineous areas Continue amlodipine and coreg for BP control. Avoid diuretic and nephrotoxic agents. Elevated lower extremities. Continue other treatments PT/OT eval and treat Repeat CBC and CMP in am.
--- NOTE | 2019-03-25 16:25 | PDOC.MOPN ---
Interval History: Getting rituxan today. Doing well. No reaction. - Vital Signs Vital Signs: Vital Signs (12 hours) Temp Pulse Resp BP BP Pulse Ox 03/25/19 16:21 98.8 F 76 16 144/66 H 92 L 03/25/19 16:16 143/77 H 03/25/19 13:51 68 18 95 03/25/19 09:56 70 18 96 03/25/19 08:35 80 143/77 H 03/25/19 08:00 16 L 03/25/19 07:52 80 16 95 03/25/19 07:49 80 16 95 03/25/19 07:36 98.4 F 84 16 156/69 H 98 Weight Weight 223 lb - Physical Exam General: Alert, Oriented x3, No acute distress Cardiovascular: Regular rate, Normal S1, Normal S2, No murmurs, Gallops, Rubs Abdomen: Normal bowel sounds, Soft, No tenderness, No hepatospenomegaly, No masses Extremities: No clubbing, No cyanosis, No edema, Normal pulses, No tenderness/ swelling Skin: No rashes, No breakdown, No significant lesion Neurological: Normal speech - Labs Result Diagrams: 03/24/19 04:49 03/25/19 07:49 Lab results: Laboratory Results - last 24 hr 03/25/19 10:59: POC Glucose 135 H 03/25/19 07:49: Sodium 136, Potassium 4.1, Chloride 104, Carbon Dioxide 26, Anion Gap 10, BUN 31 H, Creatinine 1.17, Estimated GFR (MDRD) 60, Glucose 116 H , Calcium 8.7 03/25/19 06:39: POC Glucose 121 H 03/24/19 20:43: POC Glucose 137 H 03/24/19 17:14: POC Glucose 137 H Status: lab reviewed by me A/P - Problem (1) GARIMA (acute kidney injury) Current Visit: Yes Code(s): N17.9 - ACUTE KIDNEY FAILURE, UNSPECIFIED Status : Acute (2) B-cell lymphoma Current Visit: Yes Code(s): C85.10 - UNSPECIFIED B-CELL LYMPHOMA, UNSPECIFIED SITE Status: Acute (3) Bilateral hydronephrosis Current Visit: Yes Code(s): N13.30 - UNSPECIFIED HYDRONEPHROSIS Status: Acute (4) Bilateral lower extremity edema Current Visit: Yes Code(s): R60.0 - LOCALIZED EDEMA Status: Acute (5) Cellulitis Current Visit: Yes Code(s): L03.90 - CELLULITIS, UNSPECIFIED Status: Acute (6) Physical deconditioning Current Visit: Yes Code(s): R53.81 - OTHER MALAISE Status: Acute - Plan Plan: Ok to dc to SNU after Rituxan. Follow-up in clinic after Thanksgiving to resume treatment.
--- NOTE | 2019-03-25 20:50 | PRG ---
DATE OF SERVICE: 03/25/2019 SUBJECTIVE: The patient noted with the following vital signs. OBJECTIVE: VITAL SIGNS: Afebrile, temperature 98.8, pulse 76, respiratory rate of 16, O2 saturation of 95%, and blood pressure 144/66. HEENT: Unremarkable. CARDIOVASCULAR SYSTEM: First and second sounds were heard. RESPIRATORY SYSTEM: Clear to auscultation. DIGESTIVE SYSTEM: Revealed a benign abdomen with positive bowel sounds. EXTREMITIES: No peripheral edema. SKIN: No new gross rash. LYMPHATICS: No peripheral lymphadenopathy. LABORATORY INVESTIGATION: Showed a creatinine of 1.17, sodium 136. IMPRESSION: Acute kidney injury, which seems to have resolved. PLAN: Continue current management. Job ID: [id number]
[2019-03-25] MEDS: Montelukast Sodium 10 mg Tablet PO SCH (20:58)
[2019-03-25] MEDS: Allopurinol 300 MG TAB PO SCH (20:58)
[2019-03-26 04:33] LABS: #Lymphocytes 0.4 thou/uL (1.20-3.40); #Monocytes 0.1 thou/uL (0.11-0.59); #Neutrophils 4.4 thou/uL (1.40-6.50); %Eosinophils 0.7 % (0.0-10.0); %Lymphocytes 8.5 % (21.0-51.0); %Neutrophils 88.8 % (42.0-75.0); Hemoglobin 9.9 g/dL (14.0-18.0); Mean Corpuscular HGB CONC 33.9 g/dL (32.0-36.0); Mean Corpuscular Hemoglobin 31.6 pg (27.0-31.0); Mean Corpuscular Volume 93.4 fL (78.0-98.0); Mean Platelet Volume 9.3 fL (7.4-10.4); Platelet Count 192 thou/uL (130-400); RBC Distribution Width 12.9 % (11.5-14.5); Red Blood Cell (RBC) Count 3.13 mill/uL (4.70-6.10); White Blood Cell (WBC) Count 4.9 thou/uL (4.8-10.8)
[2019-03-26 04:42] LABS: ALT (SGPT) 7 U/L (8-55); AST (SGOT) 11 U/L (5-34); Albumin 3.2 g/dL (3.4-4.8); Alkaline Phosphatase 91 U/L (40-110); Anion Gap 13 mmol/L (10-20); BUN (Urea Nitrogen) 35 mg/dL (8.4-25.7); Bilirubin, Total 0.2 mg/dL (0.2-1.2); Calc. Creatinine Clearance 71 mL/min (70-130); Calcium 8.6 mg/dL (7.8-10.44); Carbon Dioxide 23 mmol/L (23-31); Chloride 104 mmol/L (98-107); Estimated GFR-MDRD 57; Globulin 2.8 g/dL (2.4-3.5); Glucose 224 mg/dL (83-110); Potassium 4.5 mmol/L (3.5-5.1); Sodium 135 mmol/L (136-145)
[2019-03-26] MEDS: Arformoterol 15 MCG/2 ML NEB NEB SCH (07:57)
[2019-03-26 11:06] VITALS: BP 156/72; TEMP 97.5
--- NOTE | 2019-03-27 02:43 | PDOC.EVN ---
Event Note - Event Note Event Note: Discharge summary dictated. # [id number]
--- NOTE | 2019-03-27 03:43 | DIS ---
DATE OF ADMISSION: 03/17/2019 DATE OF DISCHARGE: 03/26/2019 PRIMARY CARE PHYSICIAN: Dr. Narayan Goodwin. DISCHARGE DIAGNOSES: 1. Acute kidney injury. 2. Hyperkalemia. 3. Abdominal wall cellulitis. 4. Intertriginous candidiasis. 5. Bilateral hydronephrosis. 6. Obstructive uropathy. 7. Bilateral lower extremities edema. 8. Swelling of male genitalia structure. 9. B-cell lymphoma. 10. Diabetes mellitus. 11. Metabolic acidosis. 12. Hypertension. 13. Chronic anemia. 14. Coronary artery disease. 15. Physical deconditioning. CONSULTS: 1. Nephrology. 2. Oncology. 3. Chronic diastolic heart failure. HOSPITAL COURSE: A 78-year-old male with known history of bladder cancer, status post treatment and on remission. Recent diagnosis of B-cell lymphoma, obstructive uropathy, status post recent bilateral ureteral stent placement, admitted with worsening lower extremity edema, weakness, and difficulty urinating due to genital swelling. The patient also was found to have lower abdominal and intertriginous groin erythema, maceration, and pain. Impression of Intertriginous candidiasis with cellulitis of lower abdominal wall, genital swelling, and urinary bladder outlet obstruction was made. The patient had Oliver catheter placed and was started on broad-spectrum antibiotic therapy as well as topical anti-fungal therapy. Also bilateral lower extremities were elevated. The patient also was found to have hyperkalemia and acute on chronic renal failure, necessitating Nephrology consult. He was found to have metabolic acidosis, hence was started on bicarb infusion and was treated medically for hyperkalemia with improvement. With insertion of urinary catheter, urine output improved, and progressively renal function improved. Leg swelling also improved and Hematology/Oncology consult was obtained in view of recent diagnosis of B-cell lymphoma. Following extensive discussion, it was decided finally that the patient should have a course of rituximab and then be discharged to the rehab for restorative therapy. The patient later had rituximab treatment on March 25, which was well tolerated. He remained stable and improved and was subsequently discharged the next day to long term facility for restorative therapy. PHYSICAL EXAMINATION: VITAL SIGNS: Temperature 97.5, pulse 79, respiratory rate 16, SpO2 of 97 on room air, and blood pressure is 156/72. GENERAL: Elderly male, in no distress. Afebrile. Anicteric. Acyanotic. HEENT: Normocephalic, atraumatic. Oral mucosa is moist. CARDIOVASCULAR: Regular rhythm and rate with normal heart sounds, 1 and 2. RESPIRATORY: Good air entry bilaterally with no obvious crackle or rhonchi or use of accessory muscles. GI: Obese, soft, nontender, nondistended with normal bowel sounds. Lower abdominal intertriginous erythema and cellulitis have improved greatly. UROGENITAL: Mild scrotal and penile swelling noted. Oliver catheter is in place. Erythema has markedly reduced. EXTREMITIES: Grossly normal looking atraumatic with no obvious edema or erythema. SCHOOL SUPERINTENDENT: Conscious, alert, oriented x3 with appropriate mental status. Cranial nerves 2 through 12 are grossly intact. DIS[facility] DISPOSITION[facility] DISCHARGE CONDITION: Improved. FOLLOWUP: 1. Urologist at [facility]. 2. With Dr. Lawson in 10 days. DISCHARGE MEDICATIONS: 1. Allopurinol 300 mg daily at bedtime. 2. 2 mL inhalation b.i.d. 3. Aspirin 81 mg daily. 4. Diphenoxylate atropine 2 tablets p.o. p.r.n. 5. Hydrocodone/acetaminophen 10/325 one tablet q.4 p.r.n. for pain. 6. Ipratropium/albuterol 3 mL nebulization q.i.d. 7. Montelukast 10 mg p.o. daily at bedtime. 8. Arcade-3 fatty acid two capsules p.o. b.i.d. 9. Protonix 40 mg p.o. daily. 10. MiraLAX 17 g p.o. daily. 11. Acetaminophen 650 mg q.4 p.r.n. for pain. 12. Amlodipine 2.5 mg p.o. daily. 13. Carvedilol 12.5 mg p.o. b.i.d. 14. Humalog sliding scale. 15. Tresiba 20 units subcutaneously daily. 16. Methyl salicylate topically as needed. 17. Nystatin powder one application topically b.i.d. 18. Zofran ODT 4 mg q.6 p.r.n. for nausea and vomiting. TIME SPENT: Discharge took more than 40 minutes. Job ID: [id number]
== END 2019-03-26 11:10 | DRG 683 ==
LOC: ERS 14:14 → 2NO 21:21 → UNDODISIN 03-22 18:43 → ONC 03-22 19:14
PROVIDERS: ADMIT Internal Medicine; ATTEND Internal Medicine
DX: N17.9 Acute kidney failure, unspecified (principal); C83.33 Diffuse large B-cell lymphoma, intra-abdominal lymph nodes; E87.2 Acidosis; I13.0 Hypertensive heart and chronic kidney disease with heart failure and stage 1 through stage 4 chronic kidney disease, or unspecified chronic kidney disease; I50.32 Chronic diastolic (congestive) heart failure; L03.311 Cellulitis of abdominal wall; Z51.5 Encounter for palliative care; N13.30 Unspecified hydronephrosis; E11.22 Type 2 diabetes mellitus with diabetic chronic kidney disease; E78.5 Hyperlipidemia, unspecified; M19.90 Unspecified osteoarthritis, unspecified site; J44.9 Chronic obstructive pulmonary disease, unspecified; R33.9 Retention of urine, unspecified; E87.5 Hyperkalemia; N18.3 Chronic kidney disease, stage 3 (moderate); B37.2 Candidiasis of skin and nail; D63.1 Anemia in chronic kidney disease; I25.10 Atherosclerotic heart disease of native coronary artery without angina pectoris; C67.9 Malignant neoplasm of bladder, unspecified; E78.00 Pure hypercholesterolemia, unspecified; N50.89 Other specified disorders of the male genital organs; Z79.4 Long term (current) use of insulin; I25.2 Old myocardial infarction; Z88.1 Allergy status to other antibiotic agents; Z87.891 Personal history of nicotine dependence; Z79.82 Long term (current) use of aspirin; Z79.899 Other long term (current) drug therapy; Z88.2 Allergy status to sulfonamides
CPT/HCPCS: 36415; 36416; 76770; 80048; 80053; 80069; 81001; 82570; 83605; 83735; 83880; 84145; 84156; 84300; 84540; 85025; 85027; 85610; 85730; 87086; 93005; 93306; 93970; 94640; 96374; 96375; J0696; J1200; J1815; J2930; J3490; J7050; J7070; J7620; J9312; Q0162; S0028